=== PATIENT | male | born 1980 | race Caucasian/White ===

== ENCOUNTER 2019-12-10 08:44 | Emergency (ER) | payer OTHER, SELFPAY ==
--- NOTE | ~2019-12-10 | XR_ITS ---
EXAMINATION: XR chest 2V DATE: 12/10/2019 09:30 INDICATION: Cough. Decreased lung zones in right lower lobe. TECHNIQUE: Frontal and lateral views of the chest were obtained on 4 radiographs. COMPARISON: None. FINDINGS: The chest demonstrates clear lungs without pneumonia, pleural effusion, or pneumothorax. Th e heart size is normal. There is mild chronic anterior wedging of multiple thoracic vertebral bodies. IMPRESSION: 1. No acute cardiopulmonary disease. Reviewed, dictated and finalized at location A. [employer]
--- NOTE | 2019-12-10 08:53 | ED.GENADULT ---
HPI - General Adult General Chief complaint: Upper Respiratory Infection Stated complaint: Cold/Flu symptoms Time Seen by Provider: 12/10/19 09:14 Source: patient Mode of arrival: ambulatory Limitations: no limitations History of Present Illness HPI narrative: 39-year-old male patient presents to the [facility] with complaints of cold symptoms for the past 4 days. Patient states he has had lethargy, chills, body aches. Denies any fevers that he is aware of but states he just has been feeling overall cold. Patient complaining of cough and coughing up some yellow-green sputum at times. Patient states he is an active smoker. Patient states he does have shortness of breath at times but not complain of any shortness of breath at this time. Patient states he did not get a flu shot this year. Related Data Allergies Allergy/AdvReac Type Severity Reaction Status Date / Time No Known Allergies Allergy Unknown Verified 12/10/19 09:07 Review of Systems Review of Systems: Narrative: CONSTITUTIONAL: Denies fever, positive body aches, chills, and sweats. EYES: Denies visual changes, redness, or discharge. ENT: Positive rhinorrhea, congestion, denies sore throat, or otalgia. CARDIOVASCULAR: Denies chest pain, palpitations, or edema. RESPIRATORY: Positive cough with dyspnea. GASTROINTESTINAL: Denies abdominal pain, nausea, vomiting, or diarrhea. GENITOURINARY: Denies dysuria or hematuria. SKIN: Denies rash or itching. MUSCULOSKELETAL: Denies back pain, joint pain, or myalgia. NEUROLOGIC: Positive headache, denies numbness, or weakness. PSYCHIATRIC: Denies anxiety or depression. PMFSH Comments At the time of my signature I agree with nursing past medical history, surgical, social, and family history. There is no relevant family history pertinent to the presenting complaint. Exam Narrative: Exam Narrative: GENERAL: ill-appearing, well-nourished, and in no acute distress. HEAD: Normocephalic, atraumatic. No tenderness noted to frontal and maxillary sinuses on palpation EYES: PERRLA and EOMI. ENT: Nares with erythema and edema noted bilaterally, no rhinorrhea or epistaxis. Mucous membranes moist. Posterior pharynx with no erythema, tonsillar margin, exudates or lesions present. Bilateral TMs are clear no erythema or foreign bodies in the canal. NECK: Supple. No lymphadenopathy CHEST: Patient does have decreased breath sounds noted to the right lower lobe on auscultation. No respiratory distress. Patient able talk in clear complete sentences. No tripoding noted. HEART: Regular rate and rhythm. No murmur heard. Normal peripheral pulses. ABDOMEN: Soft, nontender, nondistended, normal active bowel sounds. EXTREMITIES: Normal range of motion. No edema. SKIN: Warm, dry, no rash. NEURO: No focal deficits. Alert and oriented x3. Course Reevaluation(s) Reevaluation #1: Reevaluated patient after his DuoNeb was completed. Patient states he feels slightly better but mostly the same. Lung sounds are much improved with clear lung sounds noted to bilateral upper and lower lobes ranging from before. Discussed with patient that his x-ray is negative for pneumonia and his influenza is negative today as well. Discussed with patient this is most likely viral and because the albuterol did improve some of his symptoms and coughing I am to go ahead and send him home with an albuterol inhaler along with an oral steroid to help with any inflammation. Discussed with him hopefully that this will prevent him from getting bronchitis. Discussed with him that I am also can send him home with a daily antihistamine to help with some of the drainage but that this is viral and will take some time to run its course. Discussed with him he can take Tylenol ibuprofen as needed for body aches, chills and fevers. Patient verbalized understanding denies any other questions or concerns at this time. Date: 12/10/19 Time: 10:04 Vital Signs Vital signs: Vital Signs Temperature 36.
[2019-12-10 08:57] VITALS: BP 164/98; PULSE 74; RESP 18; TEMP 36.7; O2SAT 98
[2019-12-10] MEDS: ALBUTEROL SULFATE NEB 2.5 MG/3 ML INH INHALATION (09:31)
[2019-12-10] MEDS: IPRATROPIUM BR 0.02% INH SOLN 0.5 MG/2.5 ML VIAL INHALATION (09:31)
== END 2019-12-10 10:06 | disposition home or self-care (01) ==
PROVIDERS: Emergency Provider Nurse Practitioner Family
DX: J06.9 Acute upper respiratory infection, unspecified (principal)
CPT/HCPCS: 71046; 87804; 94640; 99213; G0463

== ENCOUNTER 2020-07-07 17:16 | Emergency (ER) | payer OTHER, SELFPAY ==
[2020-07-07 17:24] VITALS: BP 153/95; PULSE 105; RESP 24; TEMP 36.9; O2SAT 98
--- NOTE | 2020-07-07 17:26 | ED.URI ---
HPI - URI/Sore Throat General Chief Complaint: Upper Respiratory Infection Stated Complaint: sore throat/exhaustion/cough Time Seen by Provider: 07/07/20 17:26 Source: patient and RN notes reviewed History of Present Illness HPI Narrative: Patient is a 39-year-old male who presents the urgent care with complaints of 3-day history of sore throat, nonproductive cough, congestion and headache. Patient is a smoker and does report of a chronic cough. Denies of any shortness of breath. Denies of fever, nausea, vomiting. Denies of any known exposure to strep or COVID. Patient states he has been using Tylenol and ibuprofen as needed for pain. No other acute complaints. No acute distress noted. Patient aware of the plan of care. Some parts of this dictation were generated by voice recognition software and may contain typographical and/or grammatical inaccuracies. Related Data Home Medications Medication Instructions Recorded Confirmed No Home Medications 07/07/20 07/07/20 Allergies Allergy/AdvReac Type Severity Reaction Status Date / Time No Known Allergies Allergy Unknown Verified 07/07/20 17:33 Review of Systems Review of Systems: Narrative: CONSTITUTIONAL: Denies fever, chills, or sweats. EYES: Denies visual changes, redness, or discharge. ENT: Reports of sore throat and sinus congestion CARDIOVASCULAR: Denies chest pain, palpitations, or edema. RESPIRATORY: Reports of cough without dyspnea GASTROINTESTINAL: Denies abdominal pain, nausea, vomiting, or diarrhea. GENITOURINARY: Denies dysuria or hematuria. SKIN: Denies rash or itching. MUSCULOSKELETAL: Denies back pain, joint pain, or myalgia. NEUROLOGIC: Reports of headache and fatigue All other systems reviewed are negative, except as documented in HPI. PMFSH Comments At the time of my signature, I reviewed and agree with the nursing past medical, surgical, social, and family history. There is no relevant family history pertinent to the patient complaint. Exam Narrative: Exam Narrative: GENERAL: This is a well-nourished, well-developed patient, appears slightly fatigued; morbidly obese HEAD: normocephalic, atraumatic. EYES: PERRL. Sclera clear/white. Vision is grossly intact. EARS: External ears normal, auditory canals clear and without drainage, TMs normal without perforation. Hearing grossly intact. NOSE: External nose normal with no obvious nasal discharge, nares without redness, no rhinorrhea. THROAT: Mucous membranes moist, posterior pharynx clear. Mild postnasal drainage NECK: Neck supple, non-tender without lymphadenopathy, masses or thyromegaly. CARDIOVASCULAR: Regular rate and rhythm without murmurs, gallops, or rubs. RESPIRATORY: Clear to auscultation. Breath sounds equal bilaterally. No wheezes, rales, or rhonchi. GASTROINTESTINAL: Abdomen soft, non-tender, nondistended. Bowel sounds are active. No hepato-splenomegaly, or palpable masses. No guarding. SKIN: Mildly flushed. Warm, intact with no suspicious lesions or rash, good texture and turgor. NEURO: awake, alert, and oriented to person, place and time. There were no obvious focal neurologic abnormalities. EXTREMITIES: No clubbing, cyanosis, or edema. Course Vital Signs Vital signs: Vital Signs Temperature 98.4 F 07/07/20 17:24 Pulse Rate 105 H 07/07/20 17:24 Respiratory Rate 24 H 07/07/20 17:24 Blood Pressure 153/95 H 07/07/20 17:24 Pulse Oximetry 98 07/07/20 17:24 Temperature 98.4 F 07/07/20 17:24 Pulse Rate 105 H 07/07/20 17:24 Respiratory Rate 24 H 07/07/20 17:24 Blood Pressure 153/95 H 07/07/20 17:24 Pulse Oximetry 98 07/07/20 17:24 Reviewed-patient is informed that they may have pre-hypertension or hypertension based on a blood pressure reading in the department. I recommend the patient call the primary care provider listed on their discharge instructions or a physician of their choice this week to arrange follow-up for further evaluation of possible pre-hyperten
== END 2020-07-07 17:55 | disposition home or self-care (01) ==
PROVIDERS: Emergency Provider Nurse Practitioner Family
DX: J06.9 Acute upper respiratory infection, unspecified (principal)
CPT/HCPCS: 87081; 87804; 87880; 99213; G0463

== ENCOUNTER 2020-07-26 12:03 | Emergency (ER) | payer OTHER, SELFPAY ==
[2020-07-26 12:08] VITALS: BP 130/84; PULSE 73; RESP 20; TEMP 36.8; O2SAT 98
--- NOTE | 2020-07-26 12:55 | ED.GENADULT ---
HPI - General Adult General Chief complaint: Extremity Injury, Lower Stated complaint: right foot and calf swollen Time Seen by Provider: 07/26/20 12:40 Source: patient and RN notes reviewed Mode of arrival: ambulatory Limitations: no limitations History of Present Illness HPI narrative: 39 year old male who presents to [facility] care with complaints of swelling to his right calf region and foot which started yesterday with no known injury to his right foot or lower leg. Patient has pitting edema noted to his right lower leg and foot with foot having mild redness and warmth, pulses decreased to foot with Doppler used to obtain pedal pulse.Patient does have negative Homans sign with measurement of calf 24 inches in comparison to left calf of 22 inches. Patient states that pain is increased with movement of lower right extremity and with any weight bearing. No open wounds noted to right lower leg, patient states he did have pustule to area below his right knee a couple of weeks ago with healed scab noted below his knee. MD complaint: swelling to right calf and foot Onset (ago): day(s) (1) Location: right and lower extremity Radiation: non-radiation Severity: mild Severity scale (1-10): 4 Quality: aching Pain Consistency: constant Relieving factors: rest Exacerbating factors: movement and other (ambulation) Associated symptoms: denies other symptoms Treatments prior to arrival: other (elevation of right lower leg) Related Data Home Medications Medication Instructions Recorded Confirmed No Home Medications 07/07/20 07/26/20 Allergies Allergy/AdvReac Type Severity Reaction Status Date / Time No Known Allergies Allergy Unknown Verified 07/26/20 12:36 Review of Systems Review of Systems: Narrative: CONSTITUTIONAL: Denies fever, chills, or sweats. EYES: Denies visual changes, redness, or discharge. ENT: Denies rhinorrhea, congestion, sore throat, or otalgia. CARDIOVASCULAR: Denies chest pain, palpitations, or edema. RESPIRATORY: Denies cough or dyspnea. GASTROINTESTINAL: Denies abdominal pain, nausea, vomiting, or diarrhea. GENITOURINARY: Denies dysuria or hematuria. SKIN: Denies rash or itching. MUSCULOSKELETAL: Denies back pain, joint pain, or myalgia. NEUROLOGIC: Denies headache, numbness, or weakness. PSYCHIATRIC: Denies anxiety or depression. All systems reviewed & are unremarkable except as noted in HPI and below PMFSH Past Medical History Medical History (Updated 07/28/20 @ 08:48 by Vicki Linda NP) History of IBS Hypertension Open ankle fracture ORIF left ankle with pinning Family History Family History (Updated 07/26/20 @ 13:21 by Vicki Linda NP) Father Heart disease Social History Social History (Updated 07/28/20 @ 08:49 by Vicki Linda NP) Smoking packs per day: 1 Smoking cigarettes per day: 20.0 Years smoked: 20 Smoking pack-years: 20.00 Smoking status: Current every day smoker Tobacco type: cigarettes Living arrangements: with family Gender identity (if verbalized by the patient): Male Comments At time of signature, agree with nursing past medical, surgical, social and family history. There is no relevant family history pertinent to the presenting complaint Exam Narrative: Exam Narrative: GENERAL: Well-appearing, well-nourished,obese and in mild acute distress. HEAD: Normocephalic, atraumatic. EYES: PERRLA and EOMI. ENT: Nares clear, no rhinorrhea or epistaxis. Mucous membranes moist. NECK: Supple.no lymphadenopathy CHEST: Clear to auscultation. No respiratory distress.SAO2 98% on room air HEART: Regular rate and rhythm. No murmur heard. Normal peripheral pulses. ABDOMEN: Soft, nontender, nondistended, normal active bowel sounds. EXTREMITIES: Normal range of motion. No edema. with exception to right lower leg and foot which has pitting edema, lower leg red and warm with right calf 24 inches in diameter compared to left at 22 inches, pedal pulse right foot decreas
== END 2020-07-26 13:15 | disposition short-term general hospital (02) ==
PROVIDERS: Emergency Provider Registered Nurse
DX: M79.89 Other specified soft tissue disorders (principal); F17.210 Nicotine dependence, cigarettes, uncomplicated; I10 Essential (primary) hypertension
CPT/HCPCS: 99211; 99212; G0463

== ENCOUNTER 2021-01-17 09:44 | Emergency (ER) | payer OTHER, MEDICAID, SELFPAY ==
--- NOTE | ~2021-01-17 | XR_ITS ---
EXAMINATION: XR chest 2V DATE: 01/17/2021 10:32 INDICATION: Cough. TECHNIQUE: Frontal and lateral views of the chest were obtained on 4 radiographs. COMPARISON: Chest 2 views 12/10/2019 FINDINGS: Sensitivity is decreased by obesity. The chest demonstrates clear lungs without pneumonia, pleural effusion, or pneumothorax. The heart size is normal. There is mild chronic anterior wedging o f multiple thoracic vertebral bodies. IMPRESSION: 1. No acute cardiopulmonary disease. Reviewed, dictated and finalized at location A.
[2021-01-17 10:00] VITALS: BP 151/97; PULSE 79; RESP 20; TEMP 36.3; O2SAT 96
--- NOTE | 2021-01-17 10:48 | ED.URI ---
HPI - URI/Sore Throat General Chief Complaint: Upper Respiratory Infection Stated Complaint: Sore Throat/Cough/Drainage Source: patient Mode of arrival: ambulatory Limitations: no limitations History of Present Illness HPI Narrative: Patient is a 40-year-old male who presents complaining of cough, congestion, sore throat, runny nose and intermittent body aches and chills x2 days. He denies known exposure to Covid. He is not vaccinated at this time. He denies chest pain or shortness of breath at this time, he denies fever. Patient has not taking any [id number] medications for symptom relief at this time. Patient has no significant medical history, however, he does smoke cigarettes daily. MD elicited complaint: sore throat and nasal congestion Related Data Allergies Allergy/AdvReac Type Severity Reaction Status Date / Time No Known Allergies Allergy Unknown Verified 01/17/21 10:06 Review of Systems Review of Systems: Narrative: CONSTITUTIONAL: Denies fever, reports intermittent chills and body aches. EYES: Denies visual changes, redness, or discharge. ENT: Reports rhinorrhea, congestion and sore throat CARDIOVASCULAR: Denies chest pain, palpitations, or edema. RESPIRATORY: Denies cough or dyspnea. GASTROINTESTINAL: Denies abdominal pain, nausea, vomiting, or diarrhea. GENITOURINARY: Denies dysuria or hematuria. SKIN: Denies rash or itching. MUSCULOSKELETAL: Denies back pain, joint pain, or myalgia. NEUROLOGIC: Denies headache, numbness, dizziness, or weakness. PSYCHIATRIC: Denies anxiety or depression. [facility] Past Medical History Medical History History of IBS Hypertension Open ankle fracture ORIF left ankle with pinning Family History Family History Father Heart disease Social History Social History Smoking packs per day: 1 Smoking cigarettes per day: 20.0 Years smoked: 20 Smoking pack-years: 20.00 Smoking status: Current every day smoker Tobacco type: cigarettes Gender identity (if verbalized by the patient): Male Comments At the time of signature, I have reviewed and agree with nursing past medical, surgical, social, and family history unless otherwise noted. Please see nursing chart for further information. There is no relevant family history pertinent to the presenting complaint. Exam Narrative: Exam Narrative: GENERAL: Well-appearing, well-nourished, and in no acute distress. HEAD: Normocephalic, atraumatic. EYES: EOMI. No redness or drainage. Conjunctiva are normal. ENT: Mucous membranes pink and moist. Nares clear. Positive rhinorrhea. Throat with mild erythema, no exudate. Uvula midline. NECK: AROM. Supple. No lymphadenopathy. CHEST: No respiratory distress. Right-sided expiratory wheezing noted. HEART: Regular rate and rhythm. No murmur appreciated. Normal peripheral pulses. EXTREMITIES: Normal range of motion. No edema. SKIN: Warm, dry, no rash. NEURO: No focal deficits. Alert and oriented x3. Gait steady. PSYCH: Normal affect. No signs of depression or anxiety. Course Vital Signs Vital signs: Vital Signs Temperature 36.3 C L 01/17/21 10:00 Pulse Rate 79 01/17/21 10:00 Respiratory Rate 20 01/17/21 10:00 Blood Pressure 151/97 H 01/17/21 10:00 Pulse Oximetry 96 01/17/21 10:00 Temperature 36.3 C L 01/17/21 10:00 Pulse Rate 79 01/17/21 10:00 Respiratory Rate 20 01/17/21 10:00 Blood Pressure 151/97 H 01/17/21 10:00 Pulse Oximetry 96 01/17/21 10:00 Reviewed MDM - URI/Sore Throat MDM Narrative Medical decision making narrative: Patient's rapid strep and rapid Covid are negative at this time. Covid PCR sent. Chest x-ray is negative, wheezing noted. Patient most likely has bronchitis. Discussed plan of care. Patient agrees with plan of care. Patient is stable for discharg
[2021-01-18 15:48] LABS: SARS-CoV-2 RNA PCR Negative
== END 2021-01-17 10:48 | disposition home or self-care (01) ==
PROVIDERS: Emergency Provider Nurse Practitioner
DX: J40 Bronchitis, not specified as acute or chronic (principal); J06.9 Acute upper respiratory infection, unspecified; Z20.822 Contact with and (suspected) exposure to COVID-19; F17.210 Nicotine dependence, cigarettes, uncomplicated; I10 Essential (primary) hypertension
CPT/HCPCS: 71046; 87081; 87426; 87880; 99213; C9803; G0463; U0003; U0005

== ENCOUNTER 2021-02-25 08:25 | Emergency (ER) | payer SELFPAY ==
--- NOTE | ~2021-02-25 | XR_ITS ---
EXAMINATION: XR chest 1V portable DATE: 02/25/2021 09:02 INDICATION: Shortness of breath. Midline chest pain. TECHNIQUE: A single frontal view of the chest was obtained. COMPARISON: Chest 2 views 01/17/2021 FINDINGS: The chest demonstrates clear lungs without pneumonia, pleural effusion, or pneumothorax. Th e heart size is normal. IMPRESSION: 1. No acute cardiopulmonary disease. Reviewed, dictated and finalized at location A.
[2021-02-25 08:37] VITALS: BP 176/100; PULSE 86; RESP 18; TEMP 35.7; O2SAT 100
--- NOTE | 2021-02-25 08:46 | ECG_ITS ---
Measurements Intervals [place] Rate: 83 P: 14 [place]: 187 QRS: -30 QRSD: 105 T: 20 QT: 382 QTc: 451 Interpretive Statements SINUS RHYTHM LEFT AXIS DEVIATION INCOMPLETE RIGHT BUNDLE BRANCH BLOCK BORDERLINE R WAVE PROGRESSION, ANTERIOR LEADS CONSIDER INFERIOR INFARCT, AGE INDETERMINATE ABNORMAL ECG Electronically Signed On 02-25-2021 11:58:05 CDT by Jose Castro D.O.
[2021-02-25 08:54] VITALS: PULSE 83
[2021-02-25 08:54] LABS: Basophils Absolute Auto 0.2 K/mm3 (0.0-0.1); Basophils Percent Auto 1.6 % (0.2-1.2); Eosinophils Absolute Auto 0.1 K/mm3 (0-0.3); Eosinophils Percent Auto 1.2 % (0-4.4); Hematocrit 42.4 % (42.0-52.0); Hemoglobin 14.2 g/dL (14.0-18.0); Immature Granulocyte Absolute 0.05 K/mm3 (0.00-0.031); Immature Granulocyte Percent A 0.5 % (0-0.5); Lymphocytes Absolute Auto 6.32 K/mm3 (0.9-3.2); Lymphocytes Percent Auto 62.6 % (18.3-44.2); Mean Corpuscular HGB Conc 33.5 g/dl (32-36); Mean Corpuscular Hemoglobin 31.6 pg (26-34); Mean Corpuscular Volume 94.4 fl (80-100); Mean Platelet Volume 9.3 fl (7.4-10.4); Monocytes Absolute Auto 0.6 K/mm3 (0.1-0.6); Monocytes Percent Auto 5.7 % (2.6-8.5); Neutrophils Absolute Auto 2.9 K/mm3 (1.3-6.7); Neutrophils Percent Auto 28.4 % (45.5-73.1); Platelet Count Result 188 k/mm3 (150-375); Red Blood Count 4.49 M/mm3 (4.6-6.20); Red Cell Distribution Width 13.9 % (11.5-14.5); White Blood Count 10.1 K/mm3 (4.5-10.0)
[2021-02-25] MEDS: METOPROLOL TARTRATE INJ 5 MG/5 ML VIAL IV PUSH (08:54)
[2021-02-25 09:24] LABS: Prothrombin Time 13.5 Seconds (11.1-14.7)
[2021-02-25 09:27] LABS: Alanine Aminotransferase 45 U/L (4-50); Alkaline Phosphatase 78 U/L (38-126); Anion Gap 7 mmol/L (8-16); Aspartate Amino Transferase 60 U/L (17-59); Bilirubin,Total 0.3 mg/dL (0.2-1.3); Blood Urea Nitrogen 15 mg/dL (9-20); Carbon Dioxide 25 mmol/L (22-30); Chloride 105 mmol/L (98-107); D Dimer 0.37 ug/mL (<0.48); Estimated CRCL calculation 197 ml/min; Estimated Glomerular Filt Rate > 60; Glucose 111 mg/dL (75-110); Potassium 4.1 mmol/L (3.4-5.0); Sodium 137 mmol/L (137-145)
[2021-02-25 09:38] LABS: Troponin I < 0.012 ng/mL (0.000-0.034)
[2021-02-25 10:21] VITALS: BP 147/101; PULSE 97; RESP 14; O2SAT 97
[2021-02-25 12:07] LABS: Troponin I < 0.012 ng/mL (0.000-0.034)
[2021-02-25 12:28] VITALS: BP 141/99; PULSE 78; RESP 18; O2SAT 99
--- NOTE | 2021-02-25 12:58 | ED.CHESTPAIN ---
HPI - Chest Pain General Chief Complaint: Chest Pain Stated Complaint: Chest pain/SOB Time Seen by Provider: 02/25/21 08:42 Source: patient Mode of arrival: ambulatory Limitations: no limitations History of Present Illness HPI narrative: 40-year-old with history of hypertension here with complaints of chest pain however past 1 day. He states the pain is in the midsternal area nonradiating also complains of shortness of breath. He denies any nausea, vomiting or fever or chills. Denies cough. No previous history of coronary artery disease. MD complaint: chest pain Onset (ago): day(s) (1) Timing of current episode: constant Pain location: substernal Pain radiation: none Severity: mild Quality: tightness Relieving factors: nothing Exacerbating factors: nothing Treatment prior to arrival: none Risk Factors Coronary artery disease risk factors: hypertension Related Data Allergies Allergy/AdvReac Type Severity Reaction Status Date / Time No Known Allergies Allergy Unknown Verified 02/25/21 08:44 Review of Systems Review of Systems: All systems reviewed & are unremarkable except as noted in HPI and below Constitutional: Constitutional: Reports no additional constitutional complaints ENT: Reports system reviewed and no additional complaints, except as documented Cardiovascular: Cardiovascular: Reports as per HPI Respiratory: Respiratory: Reports no additional respiratory complaints Musculoskeletal: Musculoskeletal: Reports no additional musculoskeletal complaints Integumentary/Breasts: Skin/Breast: Reports system reviewed and no additional complaints, except as docu Neurologic: Reports system reviewed and no additional complaints, except as documented Psychiatric: Psychiatric: Reports no additional psychiatric complaints PMFSH Past Medical History Medical History History of IBS Hypertension Open ankle fracture ORIF left ankle with pinning Family History Family History Father Heart disease Social History Social History Smoking packs per day: 1 Smoking cigarettes per day: 20.0 Years smoked: 20 Smoking pack-years: 20.00 Smoking status: Current every day smoker Tobacco type: cigarettes Gender identity (if verbalized by the patient): Male Exam Narrative: Exam Narrative: GENERAL: Well-appearing morbidly obese, and in no acute distress. HEAD: Normocephalic, atraumatic. EYES: PERRLA and EOMI. ENT: Nares clear, no rhinorrhea or epistaxis. Mucous membranes moist. NECK: Supple. CHEST: Clear to auscultation. No respiratory distress. HEART: Regular rate and rhythm. No murmur heard. Normal peripheral pulses. ABDOMEN: Soft, nontender, nondistended, normal active bowel sounds. EXTREMITIES: Normal range of motion. No edema. SKIN: Warm, dry, no rash. NEURO: No focal deficits. Alert and oriented x3. PSYCH: Normal mood and affect. Course Course Emergency Course: Patient remained asymptomatic here at this time. I did discuss labs EKG chest x-ray findings with the patient we will start him on lisinopril for his blood pressure. Advised him to follow-up with the on-call doctor. He does feel comfortable going home. Vital Signs Vital signs: Vital Signs Temperature 35.7 C L 02/25/21 08:37 Pulse Rate 86 02/25/21 08:37 Respiratory Rate 18 02/25/21 08:37 Blood Pressure 176/100 H 02/25/21 08:37 Pulse Oximetry 100 02/25/21 08:37 Temperature 35.7 C L 02/25/21 08:37 Pulse Rate 78 02/25/21 12:28 Respiratory Rate 18 02/25/21 12:28 Blood Pressure 141/99 H 02/25/21 12:28 Pulse Oximetry 99 02/25/21 12:28 MDM - Chest Pain Differential Diagnosis Differential diagnosis: Likely unstable angina pectoris, atypical chest pain and chest pain Lab Data Result diagrams: 02/25/21 08:48 02/25/21 09:06
[2021-02-25 13:18] VITALS: BP 133/75; PULSE 72; RESP 18; O2SAT 99
== END 2021-02-25 13:18 | disposition home or self-care (01) ==
PROVIDERS: Emergency Provider Family Medicine
DX: R07.2 Precordial pain (principal); I10 Essential (primary) hypertension; K58.9 Irritable bowel syndrome, unspecified; F17.218 Nicotine dependence, cigarettes, with other nicotine-induced disorders; I45.10 Unspecified right bundle-branch block; R94.31 Abnormal electrocardiogram [ECG] [EKG]
CPT/HCPCS: 36415; 71045; 80053; 84484; 85025; 85380; 85610; 93005; 96374; 99284

== ENCOUNTER 2021-07-12 10:12 | Emergency (ER) | payer OTHER, MEDICAID, SELFPAY ==
--- NOTE | 2021-07-12 10:21 | PC.NURSE ---
pt walked out. does not want to be seen. unhappy about visitor policy. pt also had young child with him.
== END 2021-07-12 10:21 | disposition left against medical advice (07) ==
DX: Z53.21 Procedure and treatment not carried out due to patient leaving prior to being seen by health care provider (principal)
CPT/HCPCS: 99199

== ENCOUNTER 2021-11-28 09:59 | Emergency (ER) | payer SELFPAY ==
[2021-11-28 10:06] VITALS: BP 175/108; PULSE 67; RESP 18; TEMP 36.6; O2SAT 98
--- NOTE | 2021-11-28 10:10 | ED.URI ---
HPI - URI/Sore Throat General Chief Complaint: Ear Stated Complaint: Congestion/Ear Pain Source: patient and RN notes reviewed Mode of arrival: ambulatory Limitations: no limitations History of Present Illness MD elicited complaint: cough and sore throat Related Data Allergies Allergy/AdvReac Type Severity Reaction Status Date / Time No Known Allergies Allergy Unknown Verified 02/25/21 08:44 Review of Systems Review of Systems: CONSTITUTIONAL: Denies malaise, chills, sweats, or fever. EYES: Denies visual changes, redness, or discharge. ENT: Reports rhinorrhea, congestion, sinus pain, otalgia and sore throat. CARDIOVASCULAR: Denies chest pain, palpitations, or edema. RESPIRATORY: Reports cough. Denies dyspnea. GASTROINTESTINAL: Denies abdominal pain, nausea, vomiting, diarrhea SKIN: Denies rash or itching. MUSCULOSKELETAL: Denies myalgia. NEUROLOGIC: Denies headache. All systems reviewed & are unremarkable except as noted in HPI and below PMFSH Past Medical History Medical History History of IBS Hypertension Open ankle fracture ORIF left ankle with pinning Family History Family History Father Heart disease Social History Social History Smoking packs per day: 1 Smoking cigarettes per day: 20.0 Years smoked: 20 Smoking pack-years: 20.00 Smoking status: Current every day smoker Tobacco type: cigarettes Gender identity (if verbalized by the patient): Male Comments At time of signature, agree with nursing past medical, surgical, social and family history. There is no relevant family history pertinent to the presenting complaint Exam Narrative: GENERAL: Well-appearing, well-nourished, and in no acute distress. HEAD: Normocephalic EYES: PERRLA, conjunctivae clear ENT: Nares clear, turbinates edematous and erythematous, clear discharge. Mucous membranes moist. TM pearly carroll with dull light reflex bilaterally; no tragal tenderness. Oropharynx not erythematous without lesions. Tonsils not enlarged and without exudate, no drooling, no hoarseness, no trismus, uvula midline. NECK: Supple. No lymphadenopathy CHEST: Clear to auscultation, breath sounds equal. No wheezing, rhonchi, rales, or stridor. No respiratory distress, speaks in full sentences. HEART: Regular rate and rhythm. No murmur heard. SKIN: Warm, dry, no rash. NEURO: Alert and oriented x3. PSYCH: Normal mood and affect Course Course Emergency Course: Patient is aware of diagnosis, understands and agrees to treatment plan. Anticipatory guidance given. Patient agrees to follow-up as directed and is aware of reasons to seek care at the emergency department. Portions of this record may have been created with voice recognition software Level of Care: Express Care Visit Vital Signs Vital signs: Reviewed. MDM - URI/Sore Throat MDM Narrative Medical decision making narrative: Differential diagnosis considered: Silva virus, strep pharyngitis, allergic rhinitis, upper respiratory tract infection, sinusitis, rhinosinusitis, nasopharyngitis. viral pharyngitis, otitis media, otitis externa, pneumonia, bronchitis, viral cough syndrome, viral syndrome, and influenza. Exam findings show no acute concerns or changes; patient is non-toxic appearing and is in no distress. Patient is appropriate for outpatient treatment and follow-up. Lab Data Attestation: I reviewed the patient's lab results. Critical Care Time Critical Care Time Critical Care Time: No Discharge Plan Discharge Prescriptions: No Action prednisone 20 mg tablet 40 mg PO DAILY 5 Days Qty: 10 RF: 0 albuterol sulfate [ProAir HFA] 90 mcg/actuation HFA aerosol inhaler 2 puff inhalation QID PRN (Reason: shortness of breath or wheezing) Qty: 8.5 RF: 0 lisinopril-hydrochlorothiazide 20-12.5 mg tablet 1 tablet PO DAILY Q
--- NOTE | 2021-11-28 10:51 | ED.EAR ---
HPI - Ear Problem General Chief complaint: Ear Stated complaint: Congestion/Ear Pain Time Seen by Provider: 11/28/21 10:50 Source: patient and RN notes reviewed Mode of arrival: ambulatory Limitations: no limitations History of Present Illness HPI Narrative: 41-year-old male presents with concern for ear pain, worse on the left, feeling of fluid in his ears, decreased hearing on the left. He reports he has had nasal congestion for several days. He denies fever, body aches, chills, sweats. Reports he took Benadryl which helped nasal congestion but did not help with his ears. He reports drainage from the left ear Complaint: ear pain Related Data Allergies Allergy/AdvReac Type Severity Reaction Status Date / Time No Known Allergies Allergy Unknown Verified 11/28/21 10:14 Review of Systems Review of Systems: CONSTITUTIONAL: Denies malaise, chills, sweats, or fever. EYES: Denies visual changes, redness, or discharge. ENT: Reports rhinorrhea, congestion. Denies sinus pain, and sore throat. Reports bilateral ear pain, decreased hearing, feeling of fluid in the left ear, drainage from left ear CARDIOVASCULAR: Denies chest pain, palpitations, or edema. RESPIRATORY: Denies cough. Denies dyspnea. GASTROINTESTINAL: Denies abdominal pain, nausea, vomiting, diarrhea SKIN: Denies rash or itching. MUSCULOSKELETAL: Denies myalgia. NEUROLOGIC: Denies headache. All systems reviewed & are unremarkable except as noted in HPI and below PMFSH Past Medical History Medical History History of IBS Hypertension Open ankle fracture ORIF left ankle with pinning Family History Family History Father Heart disease Social History Social History Smoking packs per day: 1 Smoking cigarettes per day: 20.0 Years smoked: 20 Smoking pack-years: 20.00 Smoking status: Current every day smoker Tobacco type: cigarettes Gender identity (if verbalized by the patient): Male Comments At time of signature, agree with nursing past medical, surgical, social and family history. There is no relevant family history pertinent to the presenting complaint Exam Narrative: GENERAL: Well-appearing, well-nourished, and in no acute distress. HEAD: Normocephalic EYES: PERRLA, conjunctivae clear ENT: Mucous membranes moist. Right TM pearly carroll with dull light reflex, left TM ruptured; left tragal tenderness with auditory canal erythema and edema. NECK: Supple. No lymphadenopathy CHEST: No respiratory distress, speaks in full sentences. HEART: Regular rate and rhythm. SKIN: Warm, dry, no rash. NEURO: Alert and oriented x3. PSYCH: Normal mood and affect Course Course Emergency Course: Patient is aware of diagnosis, understands and agrees to treatment plan. Anticipatory guidance given. Patient agrees to follow-up as directed and is aware of reasons to seek care at the emergency department. Portions of this record may have been created with voice recognition software Level of Care: Express Care Visit Vital Signs Vital signs: Vital Signs Temperature 97.8 F 11/28/21 10:06 Pulse Rate 67 11/28/21 10:06 Respiratory Rate 18 11/28/21 10:06 Blood Pressure 175/108 H 11/28/21 10:06 Pulse Oximetry 98 11/28/21 10:06 Temperature 97.8 F 11/28/21 10:06 Pulse Rate 67 11/28/21 10:06 Respiratory Rate 18 11/28/21 10:06 Blood Pressure 175/108 H 11/28/21 10:06 Pulse Oximetry 98 11/28/21 10:06 Reviewed. Medical Decision Making MDM Narrative Medical decision making narrative: Differential diagnosis considered: Silva virus, strep pharyngitis, allergic rhinitis, upper respiratory tract infection, sinusitis, rhinosinusitis, nasopharyngitis. viral pharyngitis, otitis media, otitis externa, otitis effusion, cerumen impaction, foreign body. Exam findings show no acute concer
== END 2021-11-28 11:00 | disposition home or self-care (01) ==
PROVIDERS: Emergency Provider Nurse Practitioner
DX: H60.502 Unspecified acute noninfective otitis externa, left ear (principal); H66.002 Acute suppurative otitis media without spontaneous rupture of ear drum, left ear; F17.210 Nicotine dependence, cigarettes, uncomplicated; I10 Essential (primary) hypertension
CPT/HCPCS: 99213; G0463

== ENCOUNTER 2023-01-30 14:48 | Emergency (ER) | payer OTHER, MEDICAID, SELFPAY ==
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
[2023-01-30 14:57] VITALS: BP 175/92; PULSE 88; RESP 18; TEMP 36.6; O2SAT 99
== END 2023-01-30 15:19 | disposition home or self-care (01) ==
PROVIDERS: Emergency Provider Nurse Practitioner Family
DX: T24.202A Burn of second degree of unspecified site of left lower limb, except ankle and foot, initial encounter (principal); T24.201A Burn of second degree of unspecified site of right lower limb, except ankle and foot, initial encounter; X19.XXXA Contact with other heat and hot substances, initial encounter; I10 Essential (primary) hypertension; F17.210 Nicotine dependence, cigarettes, uncomplicated
CPT/HCPCS: 99213; G0463

== ENCOUNTER 2024-02-15 17:34 | Emergency (ER) | payer OTHER, SELFPAY ==
[2024-02-15 17:39] VITALS: BP 180/89; PULSE 92; RESP 16; TEMP 37.2; O2SAT 96
--- NOTE | 2024-02-15 18:36 | ED.WOUNDLAC ---
HPI - Wound/Laceration General Chief Complaint: Wound/Laceration Stated Complaint: Left leg wound Time Seen by Provider: 02/15/24 18:20 Source: patient, RN notes reviewed and old records reviewed Mode of arrival: ambulatory Limitations: no limitations History of Present Illness HPI narrative: 43 [facility] family member with complaints of wound to left lower leg which he noted about a week ago.Patient reports that he noted a scab to area and today he accidently knocked it off area. Patient reports that he has noted increase redness around wound and swelling of tissue no drainage noted or any known fevers or chills. Patient has 1 cm concave wound to left ower anterior leg with surrounding redness 2cm X 3cm. Onset (ago): week(s) (1) Extremity Location: Left: lower leg (anterior aspect) Related Data Allergies Allergy/AdvReac Type Severity Reaction Status Date / Time No Known Allergies Allergy Unknown Verified 01/30/23 15:01 Review of Systems Review of Systems: CONSTITUTIONAL: Denies fever, chills, or sweats. CARDIOVASCULAR: Denies chest pain, palpitations, or edema. RESPIRATORY: Denies cough or dyspnea. GASTROINTESTINAL: Denies abdominal pain, nausea, vomiting SKIN: Reports redness and swelling to left lower leg with 1cm concave open wound anterior aspect of left lower leg reports has seen some yellow clear drainage from wound..denies pain beyond proportion MUSCULOSKELETAL: Denies myalgia. NEUROLOGIC: Denies headache, numbness All systems reviewed & are unremarkable except as noted in HPI and below PMFSH Past Medical History Medical History (Updated 02/17/24 @ 18:01 by Vicki Linda NP) Depression History of IBS Hypertension Open ankle fracture ORIF left ankle with pinning Family History Family History Father Heart disease Social History Social History Smoking packs per day: 1 Smoking cigarettes per day: 20.0 Years smoked: 20 Smoking pack-years: 20.00 Smoking status: Current every day smoker Tobacco type: cigarettes Living arrangements: with family Gender identity (if verbalized by the patient): Male Comments At time of signature, agree with nursing past medical, surgical, social and family history. There is no relevant family history pertinent to the presenting complaint Exam Narrative: GENERAL: Well-appearing, well-nourished,morbidly obese, and in no acute distress. HEAD: Normocephalic, atraumatic. EYES: PERRLA and EOMI. ENT: Nares clear, no rhinorrhea or epistaxis. Mucous membranes moist.TM's normal throat pink with no swelling NECK: Supple. no lymphadenopathy CHEST: Clear to auscultation. No respiratory distress. HEART: Regular rate and rhythm. No murmur heard. Normal peripheral pulses. ABDOMEN: Soft, nontender, nondistended, normal active bowel sounds. EXTREMITIES: Normal range of motion. bilateral pedal edema present SKIN: Warm, dry. Erythema, induration, tenderness, warmth ro open wound of left lower anterior leg which is concave in appearance 1cm diameter, with [id number] area of redness around wound with swelling,reports some yellowish drainage. NEURO: No focal deficits. Alert and oriented x3. Course Course Emergency Course: Patient is aware of diagnosis, understands and agrees to treatment plan. Anticipatory guidance given. Patient agrees to follow-up as directed and is aware of reasons to seek care at the emergency department. Portions of this record may have been created with voice recognition software Level of Care: Express Care Visit Vital Signs Vital signs: Vital Signs Temperature 37.2 C 02/15/24 17:39 Pulse Rate 92 02/15/24 17:39 Respiratory Rate 16 02/15/24 17:39 Blood Pressure 180/89 H 02/15/24 17:39 Pulse Oximetry 96 02/15/24 17:39 Oxygen Delivery Room Air 02/15/24 17:39 Temperature
== END 2024-02-15 19:00 | disposition home or self-care (01) ==
PROVIDERS: Emergency Provider Registered Nurse
DX: S81.802A Unspecified open wound, left lower leg, initial encounter (principal); X58.XXXA Exposure to other specified factors, initial encounter; I10 Essential (primary) hypertension; F17.210 Nicotine dependence, cigarettes, uncomplicated
CPT/HCPCS: 99213; G0463

== ENCOUNTER 2024-04-14 12:42 | Emergency (ER) | payer OTHER, SELFPAY ==
[2024-04-14 12:50] VITALS: BP 160/100; PULSE 96; RESP 22; O2SAT 98
--- NOTE | 2024-04-14 12:54 | ED.GENADULT ---
HPI - General Adult General Chief complaint: Unspecified Stated complaint: Body Aches/Dizziness/Urinary Problem Time Seen by Provider: 04/14/24 12:55 Source: patient, RN notes reviewed and old records reviewed Mode of arrival: ambulatory Limitations: no limitations History of Present Illness HPI narrative: 43-year-old male presents to the [facility] with complaints of being dizzy, generalized weakness, body aches and fatigue. Patient is stating that he feels like he might be dehydrated. Patient thought we can do IV fluids. Discussed with patient that that would be the emergency room. Patient was concern also for lab work. Denies any chest pain. Denies that his heart is racing. Denies abdominal pain. Just states that he gets intermittently dizzy, none on exam Related Data Home Medications Medication Instructions Recorded Confirmed No Home Medications 04/14/24 04/14/24 Allergies Allergy/AdvReac Type Severity Reaction Status Date / Time No Known Allergies Allergy Unknown Verified 04/14/24 13:24 Review of Systems Review of Systems: All systems reviewed & are unremarkable except as noted in HPI and below Constitutional: Constitutional: Reports as per HPI Eyes: Eyes: Reports no additional eye complaints ENT: Reports system reviewed and no additional complaints, except as documented Cardiovascular: Cardiovascular: Reports no additional cardiovascular complaints, Denies chest pain and Denies dyspnea Respiratory: Respiratory: Reports no additional respiratory complaints, Denies chest congestion, Denies cough and Denies dyspnea Gastrointestinal: Gastrointestinal: Reports no additional gastrointestinal complaints, Denies abdominal pain, Denies nausea and Denies vomiting Musculoskeletal: Musculoskeletal: Reports no additional musculoskeletal complaints Integumentary/Breasts: Skin/Breast: Reports system reviewed and no additional complaints, except as docu Neurologic: Reports system reviewed and no additional complaints, except as documented Psychiatric: Psychiatric: Reports no additional psychiatric complaints Allergic/Immunologic: Allergic/Immunologic: Reports no additional allergic/immunologic complaints [facility] Past Medical History Medical History (Updated 04/15/24 @ 00:00 by Eloy Pollack) Depression History of IBS Hypertension Open ankle fracture ORIF left ankle with pinning Family History Family History Father Heart disease Social History Social History Smoking packs per day: 1 Smoking cigarettes per day: 20.0 Years smoked: 20 Smoking pack-years: 20.00 Smoking status: Current every day smoker Tobacco type: cigarettes Living arrangements: with family Gender identity (if verbalized by the patient): Male Comments At the time of my signature, I reviewed and agree with the nursing past medical, surgical, social, and family history. There is no relevant family history pertinent to the patient complaint. Exam Const: General: cooperative, healthy appearing, comfortable, no acute distress, well developed, alert and well nourished Nutritional Appearance: well nourished and obese Orientation/consciousness: patient oriented x3 Limitations: no limitations HENMT: Head: normal to inspection Ears: hearing grossly normal bilaterally and external ears normal Face/Nose/Sinus: Normal external nose present, Normal nares present, Normal nasal mucous membranes and turbinates present, normal facial exam and face symmetric Face and sinus: normal facial exam and face symmetric Mouth: Yes moist mucous membranes Eyes: General: appearance normal, both eyes and all related structures Alignment and Position: alignment normal Periorbital: periorbital findings normal Pupils: Equal, round and reactive pupils present EOM: EOMs intact bilaterally Neck: Neck: normal visual inspection, full ROM,
== END 2024-04-14 13:04 | disposition left against medical advice (07) ==
PROVIDERS: Emergency Provider Nurse Practitioner
DX: R53.83 Other fatigue (principal); R52 Pain, unspecified; I10 Essential (primary) hypertension; F17.210 Nicotine dependence, cigarettes, uncomplicated
CPT/HCPCS: 99211; G0463

== ENCOUNTER 2024-07-01 12:41 | Emergency (ER) | payer OTHER, SELFPAY ==
--- NOTE | ~2024-07-01 | XR_ITS ---
XR chest 2V Ordering provider: MIRELLA Baxter History: 43 years Male with . cough for several days and accelerated htn. smoker . Comparison: February 25, 2021 FINDINGS: MEDIASTINUM: The cardiac silhouette is not enlarged. Hilar calcified lymph nodes. LUNGS: No infiltrates, effusions or pneumothorax. Prominent bronchovascular markings. OTHER: No free air under the diaphragm. Degenerative changes of the spine. IMPRESSION: No acute cardiopulmonary pathology. Reviewed, dictated and finalized at location A.
[2024-07-01 12:51] VITALS: BP 215/106; PULSE 98; RESP 22; TEMP 36.7; O2SAT 97
[2024-07-01 13:34] VITALS: BP 184/101; PULSE 96
[2024-07-01 13:46] LABS: EDCOVIDSCREEN Negative (Negative); EDINFLUASCREEN Negative (Negative); EDINFLUBSCREEN Negative (Negative); EDSTREPNEGPOS1 Negative (Negative)
--- NOTE | 2024-07-01 13:56 | ED.GENADULT ---
HPI - General Adult General Chief complaint: Upper Respiratory Infection Stated complaint: Sore Throat/Fever/Cough Source: patient Mode of arrival: ambulatory Limitations: no limitations History of Present Illness HPI narrative: Patient presents for evaluation of sick symptoms for last few days. Symptoms include productive cough of green/white sputum, generalized body aches, sinus congestion, postnasal drainage and sore throat. No nausea, vomiting or diarrhea. His is currently sick. He smokes 1 ppd. He tried taking DayQuil yesterday which helped somewhat with his nasal drainage. He has a history of HTN and was previously on lisinopril-hctz. He does not have a primary doctor so is currently not on any medication for his BP. He denies CP or SOB. Related Data Allergies Allergy/AdvReac Type Severity Reaction Status Date / Time No Known Allergies Allergy Unknown Verified 04/14/24 13:24 Review of Systems Review of Systems: CONSTITUTIONAL: Denies fever, chills, or sweats. EYES: Denies visual changes, redness, or discharge. ENT: Reports sinus congestion, postnasal drainage and sore throat. CARDIOVASCULAR: Denies chest pain, palpitations, or edema. RESPIRATORY: Reports cough. Denies shortness of breath. GASTROINTESTINAL: Denies abdominal pain, nausea, vomiting, or diarrhea. GENITOURINARY: Denies dysuria or hematuria. SKIN: Denies rash or itching. MUSCULOSKELETAL: Reports generalized body aches. NEUROLOGIC: Denies headache, numbness, dizziness, or weakness. PSYCHIATRIC: Denies anxiety or depression. [facility] Past Medical History Medical History Depression History of IBS Hypertension Open ankle fracture ORIF left ankle with pinning Surgical History Surgical History No pertinent past surgical history Family History Family History Father Heart disease Social History Social History Smoking packs per day: 1 Smoking cigarettes per day: 20.0 Years smoked: 20 Smoking pack-years: 20.00 Smoking status: Current every day smoker Tobacco type: cigarettes Living arrangements: with family Gender identity (if verbalized by the patient): Male Exam Narrative: GENERAL: Morbidly obese. In no acute distress. HEAD: Normocephalic, atraumatic. EYES: PERRLA and EOMI. ENT: Nares clear, no rhinorrhea or epistaxis. Mucous membranes moist. There is posterior pharyngeal erythema without exudate. Uvula is midline. Bilateral TMs pearly carroll nonbulging NECK: Supple. No adenopathy or masses. No carotid bruits or JVD CHEST: Diminished breath sounds throughout. No adventitious lung sounds. Cough present on exam HEART: Regular rate and rhythm. No murmur heard. Normal peripheral pulses. ABDOMEN: Soft, nontender, nondistended, normal active bowel sounds. EXTREMITIES: Normal range of motion. No edema. SKIN: Warm, dry, no rash. NEURO: No focal deficits. Alert and oriented x3. PSYCH: Normal mood and affect. Course Course Emergency Course: This is a 43-year-old male that presented for evaluation of sick symptoms. COVID, influenza, strep were all negative. Chest x-ray negative. Blood pressure improved. Exam is consistent with acute viral syndrome. Will discharge with Tessalon. Advised on smoking cessation. Will discharge with a prescribe ask for his blood pressure. He is asymptomatic in regard to his blood pressure. He was advised to go to the emergency department if he develops chest pain or shortness of breath. Otherwise he should follow up with his primary care provider. Pt in agreement with plan of care. Level of Care: Express Care Visit Vital Signs Vital signs: Vital Signs Temperature 36.7 C 07/01/24 12:51 Pulse Rate 98 07/01/24 12:51 Respiratory Rat
[2024-07-01 13:57] VITALS: BP 182/101
== END 2024-07-01 14:42 | disposition home or self-care (01) ==
PROVIDERS: Emergency Provider Nurse Practitioner
DX: B34.9 Viral infection, unspecified (principal); I10 Essential (primary) hypertension; Z20.822 Contact with and (suspected) exposure to COVID-19; F17.210 Nicotine dependence, cigarettes, uncomplicated
CPT/HCPCS: 71046; 87081; 87426; 87804; 87880; 99213; G0463

== ENCOUNTER 2024-09-18 15:45 | Emergency (ER) | payer OTHER, SELFPAY ==
--- NOTE | ~2024-09-18 | XR_ITS ---
EXAMINATION: XR chest 2V DATE: 09/18/2024 16:49 INDICATION: Cough and chest congestion TECHNIQUE: frontal and lateral views of the chest were obtained. COMPARISON: Chest radiograph dated 07/01/2024 FINDINGS: Subtle airspace opacity lingula better appreciated on the lateral projection which obscures the left heart border. No pulmonary edema, pleural effusion or pneumothorax. Heart size is normal. Mild lower thoracic kyphosis with chronic mild anterior wedging of a couple lower thoracic vertebral bodies and moderate spondylosis. IMPRESSION: 1. Mild opacities at the lingula which could represent pneumonia or atelectasis. Reviewed, dictated and finalized at location A. SLINGER OPERATOR IMPRESSION: 1. Mild opacities at the lingula which could represent pneumonia or atelectasis .
--- NOTE | 2024-09-18 16:14 | ED.URI ---
HPI - URI/Sore Throat General Chief Complaint: Upper Respiratory Infection Stated Complaint: Congestion/Cough/Sore Throat/Shortness of Breath Time Seen by Provider: 09/18/24 16:14 Source: patient, RN notes reviewed and old records reviewed Mode of arrival: ambulatory Limitations: no limitations History of Present Illness HPI Narrative: 44 year old male presents to express care with complaints of cough with congestion, sore throat since Sunday and some shortness of breath noted today. Patient reports that he noted some sweats on Sunday but has not had any known fevers. Patient reports that he has been taking Mucinex for his symptoms. Patient is daily tobacco smoker of 1 ppd for the past 20 years. Patient reports that his boss told him to come in and get checked out today due to his symptoms. MD elicited complaint: cough, sore throat and other (congestion, dyspnea) Pertinent past history: other (tobacco use) Onset (ago): hour(s) (5 days) Consistency: progressively worsening Severity: moderate Description of mucous: yellow Able to tolerate fluids by mouth: Yes Treatments prior to arrival: other (Mucinex) Related Data Allergies Allergy/AdvReac Type Severity Reaction Status Date / Time No Known Allergies Allergy Unknown Verified 09/18/24 17:03 Review of Systems Review of Systems: CONSTITUTIONAL: Reports malaise, chills,positive for sweats,no known fever. EYES: Denies visual changes, redness, or discharge. ENT: Reports rhinorrhea, congestion, sinus pain, no otalgia and positive for sore throat. CARDIOVASCULAR: Denies chest pain, palpitations, or edema. RESPIRATORY: Reports cough.? Reports some dyspnea with exertion. GASTROINTESTINAL: Denies abdominal pain, nausea, vomiting, diarrhea SKIN: Denies rash or itching. MUSCULOSKELETAL: Denies myalgia. NEUROLOGIC: Denies headache. All systems reviewed & are unremarkable except as noted in HPI and below PMFSH Past Medical History Medical History Depression Open ankle fracture ORIF left ankle with pinning History of IBS Hypertension Surgical History Surgical History No pertinent past surgical history Family History Family History Father Heart disease Social History Social History (Updated 09/21/24 @ 10:48 by Vicki Linda NP) Smoking packs per day: 1 Smoking cigarettes per day: 20.0 Years smoked: 20 Smoking pack-years: 20.00 Smoking status: Current every day smoker Tobacco type: cigarettes Alcohol intake: current Alcohol use details: social Substance use: unknown Living arrangements: with family Gender identity (if verbalized by the patient): Male Comments At time of signature, agree with nursing past medical, surgical, social and family history. There is no relevant family history pertinent to the presenting complaint Exam Narrative: GENERAL: Well-appearing, well-nourished, obese,and in no acute distress. HEAD: Normocephalic EYES: PERRLA, conjunctivae clear ENT: Nares clear, turbinates edematous and erythematous, clear discharge. Mucous membranes moist. TM pearly carroll with dull light reflex bilaterally; no tragal tenderness. Oropharynx erythematous without lesions. Tonsils red not enlarged and without exudate, no drooling, no hoarseness, no trismus, uvula midline.post nasal drainage NECK: Supple. No lymphadenopathy CHEST:Scattered rhonchi left upper lobe on auscultation,. No wheezing,positive for rhonchi, rales, or stridor. No respiratory distress, speaks in full sentences.harsh cough noted SAO2 98% on room air HEART: Regular rate and rhythm. No murmur heard. SKIN: Warm, dry, no rash. NEURO: Alert and oriented x3. PSYCH: Normal mood and affect Course Course Emergency Course: Patient is aware of diagnosis, understands and agrees to treatment plan.? Anticipatory guidance given.? Patient agrees to follow-up as directed and is aware of reasons to seek care at the emergency department. Portions of this record may have been created with voice recognition software Level of Care: Express Care Visit Vital Signs Vital signs: Vital Signs Temperature 36.2 C L 09/18/24 16:24 Pulse Rate 80 09/18/24 16:24 Respiratory Rate 15 09/18/24 16:24 Blood Pressure 179/91 H 09/18/24 16:24 Pulse Oximetry 98 09/18/24 16:24 Oxygen Delivery Room Air 09/18/24 16:24 Temperature 36.2 C L 09/18/24 16:24 Pulse Rate 80 09/18/24 16:24 Respiratory Rate 15 09/18/24 16:24 Blood Pressure 179/91 H 09/18/24 16:24 Pulse Oximetry 98 09/18/24 16:24 Oxygen Delivery Room Air 09/18/24 16:24 Reviewed MDM - URI/Sore Throat MDM Narrative Medical decision making narrative: Differential diagnosis considered: Silva virus, strep pharyngitis, allergic rhinitis, upper respiratory tract infection, sinusitis, rhinosinusitis, nasopharyngitis. viral pharyngitis, otitis media, otitis externa, pneumonia, bronchitis, viral cough syndrome, viral syndrome, and influenza.? Exam findings show no acute concerns or changes; patient is non-toxic appearing and is in no distress.? Patient is appropriate for outpatient treatment and follow-up. Differential Diagnosis Differential diagnosis: Likely upper respiratory infection, viral infection, bronchitis, pharyngitis and other (strep pharyngitis, pneumonia) Medical Records Attestation: I reviewed the patient's medical records. Lab Data Attestation: I reviewed the patient's lab results. Lab results narrative: strep negative, culture sent,influenza A negative, Influenza B negative, COVID antigen negative Labs: Lab Results 09/18/24 Range/Units 17:04 POC Influenza A Ag Negative (Negative) POC Influenza B Ag Negative (Negative) POC SARS CoV-2 Ag Negative (Negative) POC Grp A Strep Screen Negative (Negative) reviewed Critical Care Time Critical Care Time Critical Care Time: No Discharge Plan Discharge Clinical Impression: Left upper lobe pneumonia Qualifiers: Pneumonia type: due to unspecified organism Qualified Code(s): J18.9 - Pneumonia, unspecified organism Patient Disposition: Home, Self-Care Condition: Stable Instructions: Antibiotic Form, Pneumonia (ED) Additional Instructions: Increase fluids especially juices and water [id number] cough and cold medicine of your choice for your symptoms Zyrtec Claritin or Oly daily Continue your inhaler/nebulizer as directed Steroids as directed--take with food heat to the face 20-30 minutes 4-6 times a day for pain Salt water gargles, throat lozenges or throat sprays as desired Antibiotic as directed--finished the medication If your symptoms persist, change or worsen significantly before you can contact your personal physician then please, without delay, go to the emergency department for further evaluation. Follow-up with PCP in 7-10 days or sooner if needed Follow up with PCP soon in regards to your blood pressure which is elevated above threshold for referral. Blood pressure above 120/80 may indicate pre-hypertension. Quit smoking Patient Language: German Prescriptions: New azithromycin 250 mg tablet See Rx Instructions .ROUTE .COMPLEX Qty: 6 0RF Rx Instructions: For 250 mg dose pack: take 500 mg today (day 1), then 250 mg for 4 days (days 2-5) cefdinir 300 mg capsule 300 mg PO Q12H Qty: 20 0RF prednisone 20 mg tablet 20 mg PO BID Qty: 10 0RF albuterol sulfate 90 mcg/actuation HFA aerosol inhaler 2 puff inhalation QID PRN (Reason: shortness of breath or wheezing) Qty: 8.5 0RF Rx Instructions: Use 4 times daily for the next 2 days then use as needed No Action amlodipine [Norvasc] 5 mg tablet 5 mg PO DAILY Qty: 30 0RF Rx Instructions: not taking currently methylprednisolone [Medrol (Dom)] 4 mg tablets,dose pack See Rx Instructions .ROUTE .COMPLEX Qty: 21 0RF Rx Instructions: orally per package directions Follow-up/Referrals: PHYSICIAN,ELEMENTARY INSTRUCTIONAL COACH [Primary Care Provider] - Stand Alone Forms: Work/School Release IP Time of Disposition: 17:16 Quality Carrillo Coma Scale Eyes: Open Verbal: Oriented and Alert Motor: Follows Commands Carrillo Coma Total Score: 15
[2024-09-18 16:24] VITALS: BP 179/91; PULSE 80; RESP 15; TEMP 36.2; O2SAT 98
[2024-09-18 17:05] LABS: EDCOVIDSCREEN Negative (Negative); EDINFLUASCREEN Negative (Negative); EDINFLUBSCREEN Negative (Negative)
[2024-09-18 17:06] LABS: EDSTREPNEGPOS1 Negative (Negative)
== END 2024-09-18 17:22 | disposition home or self-care (01) ==
PROVIDERS: Emergency Provider Registered Nurse
DX: J18.1 Lobar pneumonia, unspecified organism (principal); Z20.822 Contact with and (suspected) exposure to COVID-19; I10 Essential (primary) hypertension; F17.210 Nicotine dependence, cigarettes, uncomplicated
CPT/HCPCS: 71046; 87081; 87426; 87804; 87880; 99213; G0463

== ENCOUNTER 2024-10-09 10:01 | Emergency (ER) | payer OTHER, SELFPAY ==
--- NOTE | ~2024-10-09 | XR_ITS ---
EXAMINATION: XR chest 2V DATE: 10/09/2024 10:23 INDICATION: Cough TECHNIQUE: frontal and lateral views of the chest were obtained. COMPARISON: Chest radiograph dated 09/18/2024 FINDINGS: Airspace opacity lingula which projects over the heart on the lateral projection and obscured left he art border on the frontal projection. Additional airspace opacity posterior right lung base. No pleur al effusion or pneumothorax Cardiomediastinal silhouette is normal. Mild thoracic spondylosis with ch ronic mild anterior wedging of a few lower thoracic vertebral bodies IMPRESSION: 1. Airspace opacity lingula and right lower lobe consistent with pneumonia. Reviewed, dictated and finalized at location B. CAL RESEARCH SCIENTIST
--- NOTE | 2024-10-09 10:05 | ED.URI ---
HPI - URI/Sore Throat General Chief Complaint: Upper Respiratory Infection Stated Complaint: SOB/cough Time Seen by Provider: 10/09/24 10:28 Source: patient and RN notes reviewed Mode of arrival: ambulatory Limitations: no limitations History of Present Illness HPI Narrative: 44-year-old male presents with concern for ongoing cough. Reports he was diagnosed with pneumonia few weeks ago, he did not finish his antibiotics. He restarted them recently when he was not feeling well. He reports body aches, cough, exertional shortness of breath. Denies fever MD elicited complaint: cough Related Data Allergies Allergy/AdvReac Type Severity Reaction Status Date / Time No Known Allergies Allergy Unknown Verified 10/09/24 10:10 Review of Systems Review of Systems: CONSTITUTIONAL: Denies malaise, chills, sweats, or fever. EYES: Denies visual changes, redness, or discharge. ENT: Reports rhinorrhea. Denies congestion, sinus pain, otalgia and sore throat. CARDIOVASCULAR: Denies chest pain, palpitations, or edema. RESPIRATORY: Reports cough, dyspnea. GASTROINTESTINAL: Denies abdominal pain, nausea, vomiting, diarrhea SKIN: Denies rash or itching. MUSCULOSKELETAL: Denies myalgia. NEUROLOGIC: Denies headache. All systems reviewed & are unremarkable except as noted in HPI and below PMFSH Past Medical History Medical History Depression Open ankle fracture ORIF left ankle with pinning History of IBS Hypertension Surgical History Surgical History No pertinent past surgical history Family History Family History Father Heart disease Social History Social History (Updated 09/21/24 @ 10:48 by Vicki Linda NP) Smoking packs per day: 1 Smoking cigarettes per day: 20.0 Years smoked: 20 Smoking pack-years: 20.00 Smoking status: Current every day smoker Tobacco type: cigarettes Alcohol intake: current Alcohol use details: social Substance use: unknown Living arrangements: with family Gender identity (if verbalized by the patient): Male Comments At time of signature, agree with nursing past medical, surgical, social and family history. There is no relevant family history pertinent to the presenting complaint Exam Narrative: GENERAL: Well-appearing, well-nourished, and in no acute distress. HEAD: Normocephalic EYES: PERRLA, conjunctivae clear ENT: Nares clear. Mucous membranes moist. Oropharynx not erythematous without lesions. Tonsils not enlarged and without exudate, no drooling, no hoarseness, no trismus, uvula midline. NECK: Supple. No lymphadenopathy CHEST: Scattered rhonchi, breath sounds diminished on the right. No rales, or stridor. No respiratory distress, speaks in full sentences. HEART: Regular rate and rhythm. No murmur heard. SKIN: Warm, dry, no rash. NEURO: Alert and oriented x3. PSYCH: Normal mood and affect Course Course Emergency Course: Patient is aware of diagnosis, understands and agrees to treatment plan. Anticipatory guidance given. Patient agrees to follow-up as directed and is aware of reasons to seek care at the emergency department. Portions of this record may have been created with voice recognition software Level of Care: Express Care Visit Vital Signs Vital signs: Reviewed. MDM - URI/Sore Throat MDM Narrative Medical decision making narrative: Differential diagnosis considered: Silva virus, strep pharyngitis, allergic rhinitis, upper respiratory tract infection, sinusitis, rhinosinusitis, nasopharyngitis. viral pharyngitis, otitis media, otitis externa, pneumonia, bronchitis, viral cough syndrome, viral syndrome, and influenza. Exam findings show no acute concerns or changes; patient is non-toxic appearing and is in no distress. Patient is appropriate for outpatient treatment and follow-up. Lab Data Attestation: I reviewed the patient's lab results. Imaging Data My impression: Images reviewed, interpreted by radiologist, agree, see report. Radiologist's impression: EXAMINATION: XR chest 2V DATE: 10/09/2024 10:23 INDICATION: Cough TECHNIQUE: frontal and lateral views of the chest were obtained. COMPARISON: Chest radiograph dated 09/18/2024 FINDINGS: Airspace opacity lingula which projects over the heart on the lateral projection and obscured left heart border on the frontal projection. Additional airspace opacity posterior right lung base. No pleural effusion or pneumothorax Cardiomediastinal silhouette is normal. Mild thoracic spondylosis with chronic mild anterior wedging of a few lower thoracic vertebral bodies IMPRESSION: 1. Airspace opacity lingula and right lower lobe consistent with pneumonia. Critical Care Time Critical Care Time Critical Care Time: No Discharge Plan Discharge Clinical Impression: Pneumonia Patient Disposition: Home, Self-Care Condition: Stable Instructions: Antibiotic Form, Pneumonia (ED) Additional Instructions: Pneumonia is a lung infection that can cause a fever, cough, and trouble breathing. Please continue all antibiotics as directed until complete. Nutrition is important - eat small frequent meals. Get lots of rest and drink fluids. Call your Primary Care Doctor upon arrival home from the hospital and make a follow-up appointment in 3-5 days. If your cough worsens, you develop a persistent fever you develop shaking chills, a fast heartbeat, trouble breathing and/or feel you are are breathing much faster than usual, call your Primary Care Doctor or go to the ER. Make sure you wash your hands frequently. Patient Language: Moroccan Prescriptions: New levofloxacin 750 mg tablet 750 mg PO DAILY 10 Days Qty: 10 0RF albuterol sulfate 90 mcg/actuation HFA aerosol inhaler 2 puff INHALATION QID PRN (Reason: shortness of breath or wheezing) Qty: 8.5 0RF Discontinued azithromycin 250 mg tablet See Rx Instructions .ROUTE .COMPLEX Qty: 6 0RF Rx Instructions: For 250 mg dose pack: take 500 mg today (day 1), then 250 mg for 4 days (days 2-5) cefdinir 300 mg capsule 300 mg PO Q12H Qty: 20 0RF No Action amlodipine [Norvasc] 5 mg tablet 5 mg PO DAILY Qty: 30 0RF Rx Instructions: not taking currently methylprednisolone [Medrol (Dom)] 4 mg tablets,dose pack See Rx Instructions .ROUTE .COMPLEX Qty: 21 0RF Rx Instructions: orally per package directions prednisone 20 mg tablet 20 mg PO BID Qty: 10 0RF albuterol sulfate 90 mcg/actuation HFA aerosol inhaler 2 puff inhalation QID PRN (Reason: shortness of breath or wheezing) Qty: 8.5 0RF Rx Instructions: Use 4 times daily for the next 2 days then use as needed Follow-up/Referrals: PHYSICIAN,ENTRY LEVEL INSTALLATION TECHNICIAN [Primary Care Provider] - Time of Disposition: 10:44
[2024-10-09 10:08] VITALS: BP 180/100; PULSE 83; RESP 20; TEMP 36.7; O2SAT 95
== END 2024-10-09 10:50 | disposition home or self-care (01) ==
PROVIDERS: Emergency Provider Nurse Practitioner
DX: J18.9 Pneumonia, unspecified organism (principal); F17.210 Nicotine dependence, cigarettes, uncomplicated; I10 Essential (primary) hypertension
CPT/HCPCS: 71046; 99213; G0463

== ENCOUNTER 2024-12-11 11:54 | Emergency (ER) | payer OTHER, SELFPAY ==
[2024-12-11 12:06] VITALS: BP 194/111; PULSE 89; RESP 20; TEMP 37.1; O2SAT 96
--- NOTE | 2024-12-11 12:16 | ED_ITS ---
HPI - Nausea/Vomiting/Diarrhea General Chief complaint: Nausea/Vomiting/Diarrhea Stated complaint: Diarrhea Source: patient and RN notes reviewed Mode of arrival: ambulatory Limitations: no limitations History of Present Illness HPI Narrative: 44-year-old male presented for complaint of abdominal cramping and diarrhea for 2 days. Has taken Pepto-Bismol. Denies significant abdominal pain, nausea or fever. Says he had a small episode of vomiting bile this morning. Eating crackers, reports decreased appetite. Daily smoker. Related Data Allergies Allergy/AdvReac Type Severity Reaction Status Date / Time No Known Allergies Allergy Unknown Verified 12/11/24 12:15 Review of Systems Review of Systems: CONSTITUTIONAL: Denies body aches, fever, chills ENT: Denies rhinorrhea, congestion CARDIOVASCULAR: Denies chest pain, palpitations, or edema. RESPIRATORY: Denies cough or dyspnea. GASTROINTESTINAL: Endorses abdominal cramping, diarrhea. Denies nausea, vomiting, melena SKIN: Denies rash MUSCULOSKELETAL: Denies back pain, joint pain, or myalgia. NEUROLOGIC: Denies headache, numbness, tingling, or weakness. All systems reviewed & are unremarkable except as noted in HPI and below PMFSH Past Medical History Medical History Depression Open ankle fracture ORIF left ankle with pinning History of IBS Hypertension Surgical History Surgical History No pertinent past surgical history Family History Family History Father Heart disease Social History Social History Smoking packs per day: 1 Smoking cigarettes per day: 20.0 Years smoked: 20 Smoking pack-years: 20.00 Smoking status: Current every day smoker Tobacco type: cigarettes Alcohol intake: current Alcohol use details: social Substance use: unknown Living arrangements: with family Gender identity (if verbalized by the patient): Male Comments At time of signature, I have reviewed and agree with nursing past medical, darleen gical, social and family history unless otherwise noted. Please see nursing chart for further information. There is no relevant family history pertinent to the presenting complaint Exam Narrative: GENERAL: Well-appearing EYES: EOMI. Conjunctivae normal. ENT: Mucous membranes pink and moist. CHEST: No respiratory distress. Clear to auscultation. HEART: Regular rate and rhythm. No murmur appreciated. Normal peripheral pulses. ABDOMEN: abd soft, large, body habitus limits exam. hypoactive active bowel sounds. nontender abdomen; No guarding, rebound tenderness, asymmetry EXTREMITIES: Normal range of motion. SKIN: Warm, dry, no rash. Capillary refill normal. Normal skin turgor. NEURO: No focal deficits. Alert and oriented x3. PSYCH: Normal affect. Course Course Emergency Course: Patient is aware of diagnosis, understands and agrees to treatment plan. Anticipatory guidance given. Patient agrees to follow-up as directed and is aware of reasons to seek care at the emergency department. Portions of this record may have been created with voice recognition software Level of Care: Express Care Visit Vital Signs Vital signs: Vital Signs Temperature 98.8 F 12/11/24 12:06 Pulse Rate 89 12/11/24 12:06 Respiratory Rate 20 12/11/24 12:06 Blood Pressure 194/111 H 12/11/24 12:06 Pulse Oximetry 96 12/11/24 12:06 Oxygen Delivery Room Air 12/11/24 12:06 Temperature 98.8 F 12/11/24 12:06 Pulse Rate 89 12/11/24 12:06 Respiratory Rate 20 12/11/24 12:06 Blood Pressure 194/111 H 12/11/24 12:06 Pulse Oximetry 96 12/11/24 12:06 Oxygen Delivery Room Air 12/11/24 12:06 MDM - Nausea/Vomiting/Diarrhea MDM Narrative Medical decision making narrative: Discussed physical exam findings and possible etiologies of abdominal discomfort and diarrhea. Pt will try supportive measures, imodium and dicyclomine and monitor symptoms closely. Aware of elevated BP, does not take meds as directed. Advised supportive measures and signs/symptoms to go to the ER. Pt is appropriate for outpt treatment and f/u. Differential Diagnosis Differential diagnosis: Likely traveler's diarrhea, food poisoning, gastroenteritis, clostridium difficile infection and dehydration Discharge Plan Discharge Clinical Impression: Diarrhea, Elevated blood pressure reading Patient Disposition: Home, Self-Care Condition: Stable Instructions: Acute Diarrhea (ED), Hypertension (ED) Additional Instructions: Your blood pressure reading was elevated (above 120/80) please follow-up with your primary care provider for further evaluation and management. Call today. If you develop worsening Blood Pressure symptoms, (headache, vision changes, dizziness, vomiting, chest pain, etc) go to the ER. Call 911. Stay hydrated. Take small sips of fluid containing electrolytes frequently. Clear liquids (broth, jello, tea, sprite, pedialyte) [place] foods (bananas, rice, applesauce, toast, crackers) Avoid fatty, greasy, fried or spicy foods. Limit dairy until symptoms are improved. [id number] Imodium according to package directions for diarrhea Recommend probiotic such as align or lactobacillus to help with symptoms. You should go to the hospital if you experience persistent nausea and vomiting that does not resolve and does not allow you to tolerate any food or fluids, fevers, increasing abdominal pain, persistent diarrhea, dizziness, or for any other concerns. Follow up with primary care provider in 3 days. Patient Language: Tajik Prescriptions: New dicyclomine 20 mg tablet 20 mg PO QID Qty: 20 0RF No Action levofloxacin 750 mg tablet 750 mg PO DAILY 10 Days Qty: 10 0RF albuterol sulfate 90 mcg/actuation HFA aerosol inhaler 2 puff INHALATION QID PRN (Reason: shortness of breath or wheezing) Qty: 8.5 0RF amlodipine [Norvasc] 5 mg tablet 5 mg PO DAILY Qty: 30 0RF Rx Instructions: not taking currently methylprednisolone [Medrol (Dom)] 4 mg tablets,dose pack See Rx Instructions .ROUTE .COMPLEX Qty: 21 0RF Rx Instructions: orally per package directions prednisone 20 mg tablet 20 mg PO BID Qty: 10 0RF albuterol sulfate 90 mcg/actuation HFA aerosol inhaler 2 puff inhalation QID PRN (Reason: shortness of breath or wheezing) Qty: 8.5 0RF Rx Instructions: Use 4 times daily for the next 2 days then use as needed Follow-up/Referrals: PHYSICIAN,SENIOR NURSE MANAGER [Primary Care Provider] - Stand Alone Forms: Work/School Release IP Time of Disposition: 12:20
== END 2024-12-11 12:24 | disposition home or self-care (01) ==
PROVIDERS: Emergency Provider Nurse Practitioner Family
DX: R19.7 Diarrhea, unspecified (principal); I10 Essential (primary) hypertension; F17.210 Nicotine dependence, cigarettes, uncomplicated
CPT/HCPCS: 99213; G0463

== ENCOUNTER 2025-02-04 11:16 | Emergency (ER) | payer OTHER, SELFPAY ==
[2025-02-04 11:22] VITALS: BP 179/89; PULSE 74; RESP 20; TEMP 36.2; O2SAT 96
--- NOTE | 2025-02-04 11:28 | ED.EYEPROB ---
HPI - Eye Problem General Chief complaint: Eye Problems Stated complaint: Left Eye Problem Time Seen by Provider: 02/04/25 11:18 Source: patient Mode of arrival: ambulatory Limitations: no limitations History of Present Illness HPI Narrative: Taras is a 44-year-old male patient presenting to the clinic today with complaints of left eye pain/irritation. He reports he feels as though there may be something in his eye. Symptoms have been going on for over 1 week. His boss sent him in today to check for pinkeye. He works around constantly and is concerned that he may have got some dust or concrete in his eye. Has been having some clear eye drainage and some blurry vision in the left eye. Related Data Allergies Allergy/AdvReac Type Severity Reaction Status Date / Time No Known Allergies Allergy Unknown Verified 02/04/25 11:30 Review of Systems Review of Systems: Pertinent positives per HPI. Patient denies any fever, chills, rash, headache, visual changes, dizziness, cough, shortness of breath, chest pain, palpitations, nausea, vomiting, diarrhea, constipation, abdominal pain, or any urinary issues. [facility] Past Medical History Medical History Depression Open ankle fracture ORIF left ankle with pinning History of IBS Hypertension Surgical History Surgical History No pertinent past surgical history Family History Family History Father Heart disease Social History Social History Smoking packs per day: 1 Smoking cigarettes per day: 20.0 Years smoked: 20 Smoking pack-years: 20.00 Smoking status: Current every day smoker Tobacco type: cigarettes Alcohol intake: current Alcohol use details: social Substance use: unknown Living arrangements: with family Gender identity (if verbalized by the patient): Male Comments At the time of my signature, I reviewed and agree with the nursing past medical, surgical, social, and family history. There is no relevant family history pertinent to the patient complaint. Exam Narrative: General: Well-developed, morbidly obese, in no apparent distress Head: Normocephalic, atraumatic Eyes: Pupils equally round and reactive to light bilaterally, EOM intact, left sclera and conjunctive injected, no discharge, left lower lip mildly swollen with excoriation, right lids normal Ears: TMs intact and clear, ear canals clear, no drainage, grossly hearing normal. Nose: Nares patent, no discharge, no inflammation, no sinus tenderness. Mouth: Oral pharynx without lesions or masses, good dentition, MMM. Neck: Supple, trachea midline, no enlargement of anterior or posterior cervical nodes, no thyroid masses or goiter palpable. Cardio: Regular rate and rhythm, s1 and s2 normal, no murmur appreciated. Resp: Clear to auscultation bilaterally, no rhonchi, rales, wheezing or rubs Course Course Emergency Course: Portions of this record may have been created with voice recognition software. Level of Care: Express Care Visit Vital Signs Vital signs: Vital Signs Temperature 36.2 C L 02/04/25 11:22 Pulse Rate 74 02/04/25 11:22 Respiratory Rate 20 02/04/25 11:22 Blood Pressure 179/89 H 02/04/25 11:22 Pulse Oximetry 96 02/04/25 11:22 Oxygen Delivery Room Air 02/04/25 11:22 Temperature 36.2 C L 02/04/25 11:22 Pulse Rate 74 02/04/25 11:22 Respiratory Rate 20 02/04/25 11:22 Blood Pressure 179/89 H 02/04/25 11:22 Pulse Oximetry 96 02/04/25 11:22 Oxygen Delivery Room Air 02/04/25 11:22 Vital signs reviewed Procedures Other Procedure Procedure 1: Other Procedure: Two drops of topical tetracaine anesthetic was instilled with good anesthesia. Fluorescein stain of the left eye was performed without uptake of dye. No epithelial defect was noted. NO FB, ulcer or dendritic lesions. Upper lid was everted and no FB or lesions were noted. NO Braydon sign. Normal saline irrigation eye solution was performed and the patient tolerated the procedure well, no adverse reaction or complications. Noted visual acuity. MDM - Eye Problem MDM Narrative Medical decision making narrative: At the time of visit patient is resting comfortably on the exam table. Patient appears to be nontoxic. Procedures: Wood's Lamp exam was performed in the clinic today. No sign of foreign body, corneal abrasion, or Braydon sign. Plan: I suspect patient has left lower eyelid irritation possibly due to past foreign body. Will send in prescription for E-Mycin ointment to help soothe the area and cover for secondary infection. Supportive measures were discussed with the patient and they voiced understanding discharge instructions and agrees to treatment plan. Return precautions reviewed Differential Diagnosis Differential diagnosis: Likely corneal abrasion, conjunctivitis, acute iritis, hyphema, periorbital cellulitis, subconjunctival hemorrhage, glaucoma, corneal ulcer and ruptured globe Discharge Plan Discharge Clinical Impression: Irritation of eyelid Patient Disposition: Home Condition: Stable Instructions: Antibiotic Form, Eye Pain (ED) Additional Instructions: Practice good hand washing techniques Avoid touching eyes Instill eye ointment as [id number] May use warm moist washcloth to help remove eye discharge If eyes are matted shut-do not pry eyes open-use a warm moist cloth to loosen matting and wipe matter away from eye May take Tylenol/Motrin as needed for pain or fever May take Benadryl as needed for itching Follow-up with your PCP in 3-5 days if symptoms persist or sooner if they worsen Go to the emergency room if you develop any fever that is not controlled by Tylenol or Motrin, loss of vision, eye pain, increase eye swelling,visual changes, headache, confusion, lethargy, weakness, chest pain, or shortness of breath. Patient Language: Kazakh Prescriptions: New erythromycin 5 mg/gram (0.5 %) ointment 1 applic LEFT EYE Q8H 7 Days Qty: 3.5 0RF No Action levofloxacin 750 mg tablet 750 mg PO DAILY 10 Days Qty: 10 0RF amlodipine [Norvasc] 5 mg tablet 5 mg PO DAILY Qty: 30 0RF Rx Instructions: not taking currently methylprednisolone [Medrol (Dom)] 4 mg tablets,dose pack See Rx Instructions .ROUTE .COMPLEX Qty: 21 0RF Rx Instructions: orally per package directions prednisone 20 mg tablet 20 mg PO BID Qty: 10 0RF dicyclomine 20 mg tablet 20 mg PO QID Qty: 20 0RF Follow-up/Referrals: PHYSICIAN,PRODUCT MANAGER [employer] [Primary Care Provider] - Stand Alone Forms: Work/School Release IP Time of Disposition: 11:47 Quality NIHSS Nursing Documentation ED NIHSS nursing documentation: reviewed/agree
[2025-02-04] MEDS: FLUORESCEIN SOD 1 MG/STRIP LEFT EYE (11:38)
[2025-02-04] MEDS: TETRACAINE HCL 0.5% OPHTH SOLN 4 ML BTL LEFT EYE (11:38)
[2025-02-04] MEDS: DACRIOSE EYE IRRIGATION 118 ML BOTTLE LEFT EYE (11:39)
--- OUTSIDE RECORDS SUMMARY | 2025-02-04 12:46 | XMS_ITS | Clinical Summary ---
Author Organization [facility] Address [address] [place] [address] Phone Care Team Providers Care Mining Machinery Assembler Name Role Phone Provider, None Primary Care Provider Unavailabl e Allergies No known active allergies Medications amLODIPine (NORVASC) 5 MG TabletIndicatio ns:Hypertension Take 1 Tablet by mouth daily. Indications: High Blood Pressure 30 Tablet 12/16/2024 Active Encounters Date Type Department Care Team Description 12/15/2024 5:55 PM CDT - 12/16/2024 1:25 AM CDT Emergency [facility] [address] [place] [address] Romaine Benson MD Discharge Disposition: Discharged to home or Selfcare 12/15/2024 Travel from Last 3 Months Social History Tobacco Use Types Packs/Day Years Used Date Smoking Tobacco: Never Assessed Sex and Gender Information Value Date Recorded Sex Assigned at Not on file Legal Sex Male 5:48 PM CDT Gender Identity Not on file Sexual Orientation Not on file Last Filed Vital Signs Vital Sign Reading Time Taken Comments Blood Pressure 163/95 12/16/2024 12:45 AM CDT Pulse 71 12/16/2024 1:15 AM CDT Temperature 36.4 C (97.5 F) 12/15/2024 5:52 PM CDT Respiratory Rate 17 12/15/2024 8:34 PM CDT Oxygen Saturation 93% 12/16/2024 1:15 AM CDT Inhaled Oxygen Concentration - - Weight 222.3 kg (490 lb) 12/15/2024 5:52 PM CDT Height 193 cm (6' 4 ) 12/15/2024 5:52 PM CDT Body Mass Index 59.64 12/15/2024 5:52 PM CDT Plan of Treatment Health Maintenance Due Date Last Done Comments Hepatitis C Virus (HCV) Screening 1979 TdaP Immunization 1979 Hepatitis B Immunization (1 of 3 - 19+ 3-dose series) 1998 Influenza Immunization (#1) 2024 SARS-COV-2 Immunization ( - season) 2024 02/22/2021 Colonoscopy 2024 Colorectal Cancer Screening 2024 Respiratory Syncytial Virus (RSV) Immunization (Adult) (1 - 1-dose 75+ series) 2054 Meningococcal Immunization (ACWY) Aged Out No longer eligible based on patient's age to complete this topic Pneumococcal Immunization Combined Aged Out No longer eligible based on patient's age to complete this topic Rotavirus Immunization Aged Out No lo nger eligible based on patient's age to complete this topic Procedures Procedure Name Priority Date/Time Associated Diagnosis Comments XR ABDOMEN 2 VIEWS (SUPINE WITH DECUBITUS OR ERECT VIEWS) STAT 12/15/2024 11:20 PM CDT URINALYSIS REFLEX IF INDICATED BY ABNORMAL RESULTS STAT 12/15/2024 7:36 PM CDT CULTURE, URINE STAT 12/15/2024 7:36 PM CDT GOLD TOP TUBE STAT 12/15/2024 6:45 PM CDT BLUE TOP TUBE STAT 12/15/2024 6:45 PM CDT CBC WITH AUTO DIFFERENTIAL STAT 12/15/2024 6:45 PM CDT LIPASE STAT 12/15/2024 6:45 PM CDT EXTRA TUBES STAT 12/15/2024 6:45 PM CDT COMPLETE BLOOD COUNT (CBC) WITH DIFF STAT 12/15/2024 6:45 PM CDT CMP (COMPREHENSIVE METABOLIC PANEL) STAT 12/15/2024 6:45 PM CDT RSV,SARS-COV-2,INFLUE NZA A&B BY PCR STAT 12/15/2024 6:45 PM CDT from Last 3 Months Results * XR ABDOMEN 2 VIEWS (SUPINE WITH DECUBITUS OR ERECT VIEWS) (12/15/2024 11:20 PM CDT) Anatomical Region Laterality Modality Abdomen N/A Digital Radiogra phy 12/15/2024 11:3 8 PM CDT Impressions 12/15/2024 11:40 PM CDT IMPRESSION: No bowel obstruction or other acute abnormality identified. Narrative 12/15/2024 11:40 PM CDT EXAM DESCRIPTION: XR ABDOMEN 2 VIEWS (SUPINE WITH DECUBITUS OR ERECT VIEWS) REASON FOR STUDY: Abdominal pain/cramping with diarrhea x 1 week. TECHNIQUE: Upright and supine views of the abdomen. COMPARISON: None FINDINGS: LUNG BASES: Clear. Heart size normal. FREE-AIR: None. BOWEL: Nonobstructive bowel gas pattern. OTHER SOFT TISSUES: Unremarkable. BONES: Spinal endplate osteophytes. THIS IS AN ELECTRONICALLY VERIFIED FINAL REPORT 12/15/2024 11:38 PM - Electronically signed by Dago Osman M.D. AR: KENIA Report ID: [id number] Reading Location: [id number] Procedure Note Dago Osman MD - 12/15/2024 EXAM DESCRIPTION: XR ABDOMEN 2 VIEWS (SUPINE WITH DECUBITUS OR ERECT VIEWS) REASON FOR STUDY: Abdominal pain/cramping with diarrhea x 1 week. TECHNIQUE: Upright and supine views of the abdomen. COMPARISON: None FINDINGS: LUNG BASES: Clear. Heart size normal. FREE-AIR: None. BOWEL: Nonobstructive bowel gas pattern. OTHER SOFT TISSUES: Unremarkable. BONES: Spinal endplate osteophytes. THIS IS AN ELECTRONICALLY VERIFIED FINAL REPORT 12/15/2024 11:38 PM - Electronically signed by Dago Osman M.D. AR: KENIA Report ID: [id number] Reading Location: [id number] IMPRESSION: No bowel obstruction or other acute abnormality identified. Romaine Benson MD IMG DIAGNOSTIC ORDERABLES Final Result * (ABNORMAL) URINALYSIS REFLEX IF INDICATED BY ABNORMAL RESULTS (12/15/2024 7:36 PM CDT) SPECIFIC GRAVITY 1.020 1.003 - 1.030 12/15/2024 8:48 PM CDT [facility] URINE PH 6.0 5.0 - 9.0 12/15/2024 8:48 PM CDT [facility] WBC ESTERASE 25 /ul(A) Negative 12/15/2024 8:48 PM CDT [facility] NITRITE Negative Negative 12/15/2024 8:48 PM CDT [facility] PROTEIN, RANDOM URINE 30 mg/dL(A) Negative 12/15/2024 8:48 PM CDT [facility] URINE GLUCOSE, QUAL Negative Negative 12/15/2024 8:48 PM CDT [facility] URINE KETONES Negative Negative 12/15/2024 8:48 PM CDT [facility] UROBILINOGEN Normal Normal mg/dL 12/15/2024 8:48 PM CDT [facility] URINE BLOOD 10 /uL(A) Negative lady/ul 12/15/2024 8:48 PM CDT [facility] URINALYSIS COLOR Yellow 12/16/19 8:48 PM CDT [facility] URINALYSIS CLARITY Clear 12/15/2024 8:48 PM CDT [facility] WBC (Urine) 11-20(A) Negative, 0-5 /hpf 12/15/2024 8:48 PM CDT [facility] URINE RBC'S 3-5(A) Negative, 0-2 /hpf 12/15/2024 8:48 PM CDT [facility] EPITHELIAL CELLS Small amount /lpf 2024 8:48 PM CDT [facility] BACTERIA, URINE Few(A) Negative /hpf 12/15/2024 8:48 PM CDT [facility] Urine URINE SPECIMEN OBTAINED BY CLEAN CATCH PROCEDURE / Unknown Non-Phlebotomy Collection / Unknown 12/15/2024 7:36 PM CDT 12/15/2024 7:44 PM CDT Romaine Benson MD URINE ORDERABLES Final Re sult [facility] [address] [place] [address] * Culture, Urine (12/15/2024 7:36 PM CDT) Pathologist [facility] CULTURE RESULTS Mixed Growth of One or More Distal Urethral Contaminants 12/17/2024 10:10 AM CDT [facility] Urine URINE SPECIMEN OBTAINED BY CLEAN CATCH PROCEDURE / Unknown Non-Phlebotomy Collection / Unknown 12/15/2024 7:36 PM CDT 12/15/2024 7:44 PM CDT Romaine Benson MD MICROBIOLOGY - GENERAL OR DERABLES Final Result [facility] [address] [place] [address], [place] * RSV,SARS-COV-2,INFLUENZA A&B BY PCR (12/15/2024 6:45 PM CDT) FLU A Negative Negative, Error 12/15/2024 7:59 PM CDT [facility] FLU B Negative Negative 12/15/2024 7:59 PM CDT [facility] RESP SYNC VIRUS Negative Negative 7:59 PM CDT [facility] SARSCOV2 NOT DETECTED (Reference Range for this test is Not Detected) 12/15/2024 7:59 PM CDT [facility] Comment:This test was perfor med by a Reverse Depilatory Painter PCR Method. Swab NASOPHARYNGEAL STRUCTURE / Unknown Non-Phlebotomy Collection / Unknown 12/15/2024 6:45 PM CDT 12/15/2024 6:59 PM CDT Romaine Benson MD MICROBIOLOGY - GENERAL OR DERABLES Final Result Performing Organization Address [facility] Co de Phone Number [facility] [address] [place] [address] * Gold Top Tube (12/15/2024 6:45 PM CDT) Blood No Phlebotomy Charged / Unknown 12/15/2024 6:45 PM CDT 12/15/2024 7:01 PM CDT Romaine Benson MD CHEMISTRY ORDERABLES Ewa l Result Performing Organization Address [facility] Co de Phone Number [facility] [address] [place] [address] * Blue Top Tube (12/15/2024 6:45 PM CDT) Blood No Phlebotomy Charged / Unknown 12/15/2024 6:45 PM CDT 12/15/2024 7:01 PM CDT Romaine Benson MD HEMATOLOGY ORDERABLES Fin al Result Performing Organization Address [facility] Co de Phone Number [facility] [address] [place] [address] * (ABNORMAL) CBC with Auto Differential (12/15/2024 6:45 PM CDT) WBC 6.73 4.00 - 12.00 10(3)/mcL 12/15/2024 7:08 PM CDT [facility] RBC 4.52 4.40 - 5.80 10(6)/mcL 12/15/2024 7:08 PM CDT [facility] HEMOGLOBIN (HGB) 15.4 13.0 - 16.5 g/dL 12/15/2024 7:08 PM CDT [facility] HEMATOCRIT (HCT) 44.6 38.0 - 50.0 % 12/15/2024 7:08 PM CDT [facility] MCV 98.7(H) 82.0 - 96.0 fL 12/15/2024 7:08 PM CDT [facility] MCH 34.1(H) 26.0 - 32.0 pg 12/15/2024 7:08 PM CDT [facility] MCHC 34.5 31.0 - 36.0 g/dL 12/15/2024 7:08 PM CDT [facility] PLATELET COUNT 248 140 - 440 10(3)/mcL 12/15/2024 7:08 PM CDT [facility] RDW 12.9 11.8 - 15.5 % 12/15/2024 7:08 PM CDT [facility] MPV 8.9 8.0 - 12.6 fL 12/15/2024 7:08 PM CDT [facility] NEUTROPHILS 61.4 40.0 - 68.0 % 12/15/2024 7:08 PM CDT [facility] LYMPHOCYTES 29.0 19.0 - 49.0 % 12/15/2024 7:08 PM CDT [facility] MONOCYTES 7.0 3.0 - 13.0 % 12/15/2024 7:08 PM CDT [facility] EOSINOPHILS 1.6 0.0 - 8.0 % 12/15/2024 7:08 PM CDT [facility] BASOPHILS 1.0 0.0 - 1.0 % 12/15/2024 7:08 PM CDT [facility] ABSOLUTE NEUTROPHILS 4.13 1.40 - 5.30 10(3)/mcL 12/15/2024 7:08 PM CDT [facility] ABSOLUTE LYMPHOCYTES 1.95 0.90 - 3.30 10(3)/mcL 12/15/2024 7:08 PM CDT [facility] ABSOLUTE MONOCYTES 0.47 0.10 - 0.90 10(3)/mcL 12/15/2024 7:08 PM CDT [facility] ABSOLUTE EOSINOPHIL 0.11 0.00 - 0.50 10(3)/mcL 12/15/2024 7:08 PM CDT [facility] ABSOLUTE BASOPHILS 0.07 0.00 - 0.10 10(3)/mcL 12/15/2024 7:08 PM CDT [facility] NRBC PER 100 WBC 0 12/16/19 25 7:08 PM CDT [facility] Blood Venipuncture / Unknown 12/15/2024 6:45 PM CDT 12/15/2024 6:59 PM CDT Romaine Benson MD HEMATOLOGY ORDERABLES Fin al Result Performing Organization Address City/[facility]/ZIP Co de Phone Number [facility] [address] [place] [address] * Lipase (12/15/2024 6:45 PM CDT) LIPASE 13 8 - 78 U/L 12/15/2024 11:43 PM CDT [facility] Blood Venipuncture / Unknown 12/15/2024 6:45 PM CDT 12/15/2024 6:59 PM CDT Romaine Benson MD CHEMISTRY ORDERABLES Ewa l Result [facility] [address] [place] [address] * (ABNORMAL) CMP (Comprehensive Metabolic Panel) (12/15/2024 6:45 PM CDT) SODIUM 140 136 - 145 mmol/L 12/15/2024 7:31 PM CDT [facility] POTASSIUM 4.2 3.5 - 5.1 mmol/L 12/15/2024 7:31 PM CDT [facility] CHLORIDE 103 98 - 107 mmol/L 12/15/2024 7:31 PM CDT [facility] CO2, VENOUS 25 22 - 30 mmol/L 12/15/2024 7:31 PM CDT [facility] ANION GAP 16.2 <18.0 mmol/L 12/15/2024 7:31 PM CDT [facility] GLUCOSE 106(H) 70 - 99 mg/dL 12/15/2024 7:31 PM CDT [facility] BUN 15 9 - 21 mg/dL 12/15/2024 7:31 PM T [facility] CREATININE, BLOOD 0.84 0.70 - 1.30 mg/dL 12/15/2024 7:31 PM CDT [facility] BUN/CREATININE RATIO 18 12 - 20 ratio 12/15/2024 7:31 PM CDT [facility] TOTAL PROTEIN 7.3 6.0 - 8.0 g/dL 12/15/2024 7:31 PM CDT [facility] ALBUMIN 4.2 3.5 - 5.0 g/dL 12/15/2024 7:31 PM T [facility] A/G RATIO 1.4 1.0 - 2.2 12/15/2024 7:31 PM CDT [facility] CALCIUM 8.8 8.7 - 10.5 mg/dL 12/15/2024 7:31 PM T [facility] T BILI 0.5 0.2 - 1.2 mg/dL 12/15/2024 7:31 PM CDT [facility] SGOT (AST) 81(H) <43 U/L 12/15/2024 7:31 PM T [facility] SGPT (ALT) 65(H) <56 U/L 12/15/2024 7:31 PM CDT [facility] ALKALINE PHOSPHATASE 77 40 - 150 U/L 12/15/2024 7:31 PM CDT [facility] GFR, ESTIMATED >60 >=60 12/15/2024 7:31 PM CDT [facility] Comment: Creatinine Clearance is the preferred criteria for selecting drug dose adjustments in renally impaired patients. The GFR is provided as additional pertinent clinical information. GFR is reported in mL/min/1.73 sq m. Calculation based on the Chronic Kidney Disease Epidemiology Collaboration (CKD- EPI) equation refit without adjustment for race. GFR, EST. >60 >=60 025 7:31 PM CDT [facility] GFR, EST. NONAFRICAN >60 >=60 12/15/2024 7:31 PM CDT [facility] Blood Venipuncture / Unknown 12/15/2024 6:45 PM CDT 12/15/2024 6:59 PM CDT us Romaine Benson MD CHEMISTRY ORDERABLES Ewa l Result Performing Organization Address City/State/[facility] Co de Phone Number [facility] [address] [place] [address] from Last [address] [place] [address] Care Teams Mining Machinery Assembler Relationship Specialty Start Date End Date Provider, None [place] PCP - General 12/15/24
== END 2025-02-04 11:55 | disposition home or self-care (01) ==
PROVIDERS: Emergency Provider Nurse Practitioner Family
DX: H02.89 Other specified disorders of eyelid (principal); I10 Essential (primary) hypertension; K58.9 Irritable bowel syndrome, unspecified; F17.210 Nicotine dependence, cigarettes, uncomplicated
CPT/HCPCS: 99213; A9270; G0463

== ENCOUNTER 2025-03-18 16:54 | Emergency (ER) | payer SELFPAY ==
--- NOTE | ~2025-03-18 | XR_ITS ---
XR foot LT min 3V Ordering provider: Janice Serrano NP History: . pain to 3rd-5th toes AND METATARSALS, HYPEREXTENSION INJURY . Comparison: None. FINDINGS: BONES: No acute fracture or dislocation. JOINT SPACES: Narrowing of the proximal and distal interphalangeal joints. 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 No tarsal coalition. SOFT TISSUES: Normal. Calcaneal spur. IMPRESSION: No acute osseous abnormality left foot. Reviewed, dictated and finalized at location A.
[2025-03-18 17:04] VITALS: BP 182/101; PULSE 92; RESP 22; TEMP 36.1; O2SAT 97
--- NOTE | 2025-03-18 17:23 | ED_ITS ---
HPI - Extremity Injury (Lower) General Chief Complaint: Extremity Injury, Lower Stated Complaint: Fall Injury/Toe Injury Time Seen by Provider: 03/18/25 17:23 Source: patient Mode of arrival: ambulatory Limitations: no limitations History of Present Illness HPI Narrative: 44-year-old male presents with complaint of pain, bruising and swelling to left foot. This morning was walking down steps in flip-flops, right foot flap slipped foot causing patient to tripped and hyper extended 3rd 4th and 5th toes left foot. Patient concern for fracture. Ambulatory with limp. All systems reviewed and negative except as noted above. Related Data Home Medications ?Medication ?Instructions ?Recorded ?Confirmed ?Last Taken ?Type No Home Medications 03/18/25 03/18/25 Unknown History Allergies Allergy/AdvReac Type Severity Reaction Status Date / Time No Known Allergies Allergy Unknown Verified 03/18/25 17:25 Review of Systems Review of Systems: CONSTITUTIONAL: Denies fever, chills, or sweats. EYES: Denies visual changes, redness, or discharge. ENT: Denies rhinorrhea, congestion, sore throat, or otalgia. CARDIOVASCULAR: Denies chest pain, palpitations, or edema. RESPIRATORY: Denies cough or dyspnea. GASTROINTESTINAL: Denies abdominal pain, nausea, vomiting, or diarrhea. GENITOURINARY: Denies dysuria or hematuria. SKIN: Denies rash or itching. MUSCULOSKELETAL: Denies back pain, joint pain, or myalgia. Reports pain, nausea and swelling to left foot. NEUROLOGIC: Denies headache, numbness, or weakness. PSYCHIATRIC: Denies anxiety or depression. All other systems reviewed are negative, except as documented in HPI. [facility] Past Medical History Medical History Depression Open ankle fracture ORIF left ankle with pinning History of IBS Hypertension Surgical History Surgical History No pertinent past surgical history Family History Family History Father Heart disease Social History Social History Smoking packs per day: 1 Smoking cigarettes per day: 20.0 Years smoked: 20 Smoking pack-years: 20.00 Smoking status: Current every day smoker Tobacco type: cigarettes Alcohol intake: current Alcohol use details: social Substance use: unknown Living arrangements: with family Gender identity (if verbalized by the patient): Male Comments At time of signature, agree with nursing past medical, surgical, social and family history. There is no relevant family history pertinent to the presenting complaint. Exam Narrative: GENERAL: This is a well-nourished, well-developed patient, in no apparent distress. HEAD: normocephalic, atraumatic. EYES: PERRL. Sclera clear/white. Vision is grossly intact. EARS: External ears normal NOSE: External nose normal NECK: Neck supple, non-tender without lymphadenopathy, masses or thyromegaly. CARDIOVASCULAR: Regular rate and rhythm without murmurs, gallops, or rubs. RESPIRATORY: Clear to auscultation. Breath sounds equal bilaterally. No wheezes, rales, or rhonchi. SKIN: warm, Dry, intact with no suspicious lesions or rash, good texture and turgor. NEURO: awake, alert, and oriented to person, place and time. There were no obvious focal neurologic abnormalities. EXTREMITIES: Bruising and swelling to left foot. Tenderness to 3rd 4th 5th toes and 3rd and 4th distal metatarsal. No deformity noted. Course Course Level of Care: Express Care Visit Vital Signs Vital signs: Vital Signs Temperature 36.1 C L 03/18/25 17:04 Pulse Rate 92 03/18/25 17:04 Respiratory Rate 22 H 03/18/25 17:04 Blood Pressure 182/101 H 03/18/25 17:04 Pulse Oximetry 97 03/18/25 17:04 Oxygen Delivery Room Air 03/18/25 17:04 Temperature 36.1 C L 03/18/25 17:04 Pulse Rate 92 03/18/25 17:04 Respiratory Rate 22 H 03/18/25 17:04 Blood Pressure 182/101 H 03/18/25 17:04 Pulse Oximetry 97 03/18/25 17:04 Oxygen Delivery Room Air 03/18/25 17:04 Reviewed MDM - Extremity Injury (Lower) MDM Narrative Medical decision making narrative: x-ray of left foot negative for fracture. Discussed results with patient. Recommend ibuprofen, ice, elevation, rest. Will follow up primary care physician if pain is not improving. Differential Diagnosis Differential diagnosis: Likely fracture of toe and other ( Left foot fracture, foot sprain, foot contusion) Imaging Data My impression: agree with radiologist Radiologist's impression: XR foot LT min 3V Ordering provider: Janice Serrano NP History: . pain to 3rd-5th toes AND METATARSALS, HYPEREXTENSION INJURY . Comparison: None. FINDINGS: BONES: No acute fracture or dislocation. JOINT SPACES: Narrowing of the proximal and distal interphalangeal joints. 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 No tarsal coalition. SOFT TISSUES: Normal. Calcaneal spur. IMPRESSION: No acute osseous abnormality left foot. Discharge Plan Discharge Clinical Impression: Elevated blood pressure reading Contusion of foot, left Qualifiers: Encounter type: initial encounter Qualified Code(s): S90.32XA - Contusion of left foot, initial encounter Patient Disposition: Home Condition: Stable Instructions: Contusion in Adults (ED) Additional Instructions: the x-ray of your left foot was negative for fracture. Take ibuprofen or Tylenol every 6-8 hours as needed for pain. Elevate when at rest. Apply ice as needed for pain. Your blood pressure was elevated today. Follow-up with your primary care physician at next available appointment. Patient Language: Djiboutian Prescriptions: No Action No Home Medications Follow-up/Referrals: PHYSICIAN,ORNAMENT MAKER HAND [Primary Care Provider] - Stand Alone Forms: Work/School Release IP Time of Disposition: 18:09
--- OUTSIDE RECORDS SUMMARY | 2025-03-18 18:16 | XMS_ITS | Clinical Summary ---
Author Organization [facility] Address [address] [place] [address] Phone Care Team Providers Care Maintenance Man Name Role Phone Provider, None Primary Care Provider Unavailabl e Allergies No known active allergies Medications amLODIPine (NORVASC) 5 MG TabletIndicatio ns:Hypertension Take 1 Tablet by mouth daily. Indications: High Blood Pressure 30 Tablet 12/16/2024 Active Encounters Date Type Department Care Team Description 12/15/2024 5:55 PM CDT - 12/16/2024 1:25 AM CDT Emergency [facility] Emergency [address] [place] [address] Romaine Benson MD Discharge Disposition: Discharged to home or Selfcare from Last 3 Months Social History Tobacco [...] 5:52 PM CDT Height 193 cm (6' 4) 12/15/2024 5:52 PM CDT Body Mass Index 59.64 12/15/2024 5:52 PM CDT Plan of Treatment Health Maintenance Due Date Last Done Comments Hepatitis C Virus (HCV) Screening 1979 TdaP Immunization 1979 Hepatitis B Immunization (1 of 3 - 19+ 3-dose series) 1998 SARS-COV-2 Immunization ( season) 2024 02/22/2021 Colonoscopy 2024 Colorectal Cancer Screening 2024 Influenza Immunization (Seas on Ended) 2025 Respiratory Syncytial Virus (RSV) Immunization (Adult) (1 - 1-dose 75+ series) 2054 Human Papillomavirus (HPV) Immunization Aged Out No longer eligible b ased on patient's age to complete this topic Meningococcal Immunization (ACWY) Aged Out No longer eligible based on patient's age to complete this topic Pneumococcal Immunization Combined Aged Out No longer eligible based on patient's age to complete this topic Rotavirus Immunization Aged Out No lo nger eligible based on patient's age to complete this topic Insurance Care Teams Maintenance Man Relationship Specialty Start Date End Date Provider, Chris VELAZQUEZ PCP - General 12/15/24
== END 2025-03-18 18:10 | disposition home or self-care (01) ==
PROVIDERS: Emergency Provider Nurse Practitioner Family
DX: I10 Essential (primary) hypertension (principal); S90.32XA Contusion of left foot, initial encounter; W10.9XXA Fall (on) (from) unspecified stairs and steps, initial encounter; F17.210 Nicotine dependence, cigarettes, uncomplicated
CPT/HCPCS: 73630; 99213; G0463

== ENCOUNTER 2025-04-23 12:21 | Emergency (ER) | payer SELFPAY ==
--- OUTSIDE RECORDS SUMMARY | 2025-04-23 12:23 | XMS_ITS | Clinical Summary ---
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 Indications: High Blood Pressure 30 Tablet 12/16/2024 Active Social History Tobacco Use Types Packs/Day Years [...] Virus (HCV) Screening 1979 TdaP Immunization 1979 Human Papillomavirus (HPV) Immunization (1 - Male 3-dose series) 1994 Hepatitis B Immunization (1 of 3 - 19+ 3-dose series) 1998 SARS-COV-2 Immunization (2023- season) 2024 02/22/2021 Cologuard 2024 Colonoscopy 2024 Colorectal Cancer Screening 2024 Immunochemical Fecal Occult Blood 2024 Influenza Immunization (#1) 2025 Respiratory Syncytial Virus (RSV) Immunization (Adult) [...] to complete this topic Insurance Care Teams Towel Rolling Machine Operator Relationship Specialty Start Date End Date Provider, None [place] PCP - General 12/15/24
[2025-04-23 12:34] VITALS: BP 166/106; PULSE 92; RESP 22; TEMP 36.1; O2SAT 96
--- NOTE | 2025-04-23 13:06 | ED_ITS ---
HPI - General Adult General Chief complaint: Headache Stated complaint: Heat caused nausea Time Seen by Provider: 04/23/25 12:42 Source: patient and RN notes reviewed Mode of arrival: ambulatory Limitations: no limitations History of Present Illness HPI narrative: Patient presents today requesting a work excuse. Yesterday he vomited after working in the heat and also exists variance some dizziness, cramping, and mild confusion. After this episode he said in the air conditioning at work before driving home. Today he has a mild headache some dry mouth and fatigue. He currently denies any dizziness, sweating, cramping, vomiting, nausea, or abdominal pain. He is requesting a note to excuse him from work yesterday and today. He is orally hydrating with water and electrolyte fluids. Related Data Home Medications ?Medication ?Instructions ?Recorded ?Confirmed ?Last Taken ?Type albuterol sulfate 90 mcg/actuation inhalation 04/23/25 Unknown History aerosol inhaler Allergies Allergy/AdvReac Type Severity Reaction Status Date / Time No Known Allergies Allergy Unknown Verified 04/23/25 12:37 [facility] Past Medical History Medical History Depression Open ankle fracture ORIF left ankle with pinning History of IBS Hypertension Surgical History Surgical History No pertinent past surgical history Family History Family History Father Heart disease Hypertension Alcoholism Mother Alcoholism Depression Grandparent Hypertension Depression Social History Social History Smoking packs per day: 1 Smoking cigarettes per day: 20.0 Years smoked: 20 Smoking pack-years: 20.00 Smoking status: Current every day smoker Tobacco type: cigarettes Alcohol intake: current Alcohol use details: social Substance use: current Substance use type: marijuana Living arrangements: with family Gender identity (if verbalized by the patient): Male Comments Reviewed Exam Narrative: GENERAL: Well-appearing, obese, and in no acute distress. HEAD: Normocephalic, atraumatic. EYES: EOMI. No redness or drainage. Conjunctivae normal. ENT: Mucous membranes pink and moist. NECK: Normal AROM. Supple. No lymphadenopathy. CHEST: No respiratory distress. Clear to auscultation. HEART: Regular rate and rhythm. No murmur appreciated. EXTREMITIES: Normal range of motion. No edema. SKIN: Warm, dry, no rash. Capillary refill normal. Normal skin turgor. NEURO: No focal deficits. Alert and oriented x3. Gait steady. PSYCH: Normal affect. No signs of depression or anxiety. Course Course Level of Care: Express Care Visit Vital Signs Vital signs: Vital Signs Temperature 97 F L 04/23/25 12:34 Pulse Rate 92 04/23/25 12:34 Respiratory Rate 22 H 04/23/25 12:34 Blood Pressure 166/106 H 04/23/25 12:34 Pulse Oximetry 96 04/23/25 12:34 Oxygen Delivery Room Air 04/23/25 12:34 Temperature 97 F L 04/23/25 12:34 Pulse Rate 92 04/23/25 12:34 Respiratory Rate 22 H 04/23/25 12:34 Blood Pressure 166/106 H 04/23/25 12:34 Pulse Oximetry 96 04/23/25 12:34 Oxygen Delivery Room Air 04/23/25 12:34 Reviewed Medical Decision Making MDM Narrative Medical decision making narrative: 44-year-old male patient presents with heat exhaustion symptoms yesterday causing him to leave work. He would like a note to excuse him from work yesterday and today. Today he is experiencing some headache, fatigue, and mild dry mouth. Denies any other symptoms. Today he is orally hydrating. Patient's history of hypertension but has been off of hypertension meds for 2 months and was just prescribed some HCTZ and losartan this morning and will pick them up from the pharmacy after leaving. BP upon arrival was 166/106. Work note provided. Anticipatory guidance and ED precautions given. Differential Diagnosis Differential Diagnosis: Heat exhaustion, heat stroke, viral syndrome, electrolyte imbalance, dehydration Vital Signs Vital Signs: Vital Signs Temperature 97 F L 04/23/25 12:34 Pulse Rate 92 04/23/25 12:34 Respiratory Rate 22 H 04/23/25 12:34 Blood Pressure 166/106 H 04/23/25 12:34 Pulse Oximetry 96 04/23/25 12:34 Oxygen Delivery Room Air 04/23/25 12:34 Temperature 97 F L 04/23/25 12:34 Pulse Rate 92 04/23/25 12:34 Respiratory Rate 22 H 04/23/25 12:34 Blood Pressure 166/106 H 04/23/25 12:34 Pulse Oximetry 96 04/23/25 12:34 Oxygen Delivery Room Air 04/23/25 12:34 Critical Care Time Critical Care Time Critical Care Time: No Discharge Plan Discharge Clinical Impression: Heat exhaustion Qualifiers: Encounter type: initial encounter Qualified Code(s): T67.5XXA - Heat exhaustion, unspecified, initial encounter Patient Disposition: Home Condition: Stable Instructions: Heat Exhaustion (ED) Additional Instructions: Please continue to orally hydrate at home with water and fluids containing electrolytes. Rest in the air conditioning. As discussed, if symptoms worsen to include dizziness, cramping, nausea or vomiting, abdominal pain, please go to the ER immediately for further evaluation. Your blood pressure was elevated above 120/80 today at Urgent Care. This puts you above the threshold for follow up. Please schedule a followup visit with your personal physician as soon as possible, for further evaluation and treatment. Even blood pressure exceeding 120/80 may indicate pre-hypertension. Patient Language: [place] Korean Prescriptions: No Action albuterol sulfate 90 mcg/actuation HFA aerosol inhaler INHALATION lisinopril 20 mg tablet 20 mg PO DAILY Qty: 90 0RF Patient Comments: new script hasn't taken yet but to start taking today when he picks up from pharmacy. hydrochlorothiazide 25 mg tablet 25 mg PO DAILY Qty: 90 0RF Patient Comments: hasn't picked up script yet. to get later today. Follow-up/Referrals: Angélica Christian DO [Primary Care Provider] - Stand Alone Forms: Work/School Release IP Time of Disposition: 12:56
== END 2025-04-23 13:01 | disposition home or self-care (01) ==
PROVIDERS: Emergency Provider Nurse Practitioner; PCP Family Medicine
DX: T67.5XXA Heat exhaustion, unspecified, initial encounter (principal); I10 Essential (primary) hypertension; F17.210 Nicotine dependence, cigarettes, uncomplicated
CPT/HCPCS: 99213; G0463

== ENCOUNTER 2025-08-15 15:18 | Emergency (ER) | payer SELFPAY ==
--- NOTE | 2025-08-15 15:23 | ED.URI ---
HPI - URI/Sore Throat General Chief Complaint: Upper Respiratory Infection Stated Complaint: Fever/Body Aches/Headache Time Seen by Provider: 08/15/25 15:24 Source: patient Mode of arrival: ambulatory Limitations: no limitations History of Present Illness HPI Narrative: Taras is a 44-year-old male patient presenting to the clinic today with complaints of fever, body aches, runny nose, post nasal drainage, and headache X2 days. He reports yesterday he felt feverish. Did not checked his temperature. Has not taken any medications for his symptoms. Denies any current pain at this time. 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 Had sick contact at work. Related Data Home Medications ?Medication ?Instructions ?Recorded ?Confirmed ?Last Taken ?Type furosemide 40 mg tablet 40 mg PO DAILY 06/02/25 08/04/25 Unknown History lisinopril 20 mg tablet 10 mg PO DAILY 06/02/25 08/04/25 Unknown History Allergies Allergy/AdvReac Type Severity Reaction Status Date / Time No Known Allergies Allergy Unknown Verified 08/15/25 15:27 Review of Systems Review of Systems: Pertinent positives per HPI. Patient denies any visual changes, dizziness, chest pain, palpitations, nausea, vomiting, diarrhea, constipation, abdominal pain, or any urinary issues. [facility] Past Medical History Medical History Depression Open ankle fracture ORIF left ankle with pinning History of IBS Hypertension Surgical History Surgical History No pertinent past surgical history Family History Family History Father Heart disease Hypertension Alcoholism Mother Alcoholism Depression Grandparent Hypertension Depression Social History Social History Smoking packs per day: 1 Smoking cigarettes per day: 20.0 Years smoked: 20 Smoking pack-years: 20.00 Tobacco type: cigarettes Alcohol intake: current Alcohol use details: social Substance use: current Substance use type: marijuana Living arrangements: with family Gender identity (if verbalized by the patient): Male Comments At the time of my signature, I reviewed and agree with the nursing past medical, surgical, social, and family history. There is no relevant family history pertinent to the patient complaint. Exam Narrative: General: Well-developed, morbidly obese, in no apparent distress Head: Normocephalic, atraumatic Eyes: Pupils equally round and reactive to light bilaterally, EOM intact, sclera and conjunctive clear, no discharge, lids normal Ears: TMs intact and clear, ear canals clear, no drainage, grossly hearing normal. Nose: Nares patent, clear nasal discharge, no inflammation, no sinus tenderness. Mouth: Oral pharynx without lesions or masses, good dentition, MMM. Postnasal drip Neck: Supple, trachea midline, no enlargement of anterior or posterior cervical nodes, no thyroid masses or goiter palpable. Cardio: Regular rate and rhythm, s1 and s2 normal, no murmur appreciated. Resp: Clear to auscultation bilaterally, no rhonchi, rales, wheezing or rubs Course Course Emergency Course: Portions of this record may have been created with voice recognition software. Level of Care: Express Care Visit Vital Signs Vital signs: Vital Signs Temperature 36.5 C 08/15/25 15:26 Pulse Rate 94 08/15/25 15:26 Respiratory Rate 20 08/15/25 15:26 Blood Pressure 182/87 H 08/15/25 15:26 Pulse Oximetry 98 08/15/25 15:26 Oxygen Delivery Room Air 08/15/25 15:26 Temperature 36.5 C 08/15/25 15:26 Pulse Rate 94 08/15/25 15:26 Respiratory Rate 20 08/15/25 15:26 Blood Pressure 182/87 H 08/15/25 15:26 Pulse Oximetry 98 08/15/25 15:26 Oxygen Delivery Room Air 08/15/25 15:26 Vital signs reviewed MDM - URI/Sore Throat MDM Narrative Medical decision making narrative: At the time of visit patient is resting comfortably on the exam table. Patient appears to be nontoxic. Complaints of fever, body aches, runny nose, post nasal drainage, and headache X2 days. He reports yesterday he felt feverish. Did not checked his temperature. Has not taken any medications for his symptoms. Denies any current pain at this time. 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 Had sick contact at work. Labs: COVID and influenza testing performed and was negative in the clinic today. Plan: I suspect patient has URI. Work note given. Supportive measures were discussed with the patient and they voiced understanding discharge instructions and agrees to treatment plan. Return precautions reviewed Differential Diagnosis Differential diagnosis: Likely upper respiratory infection, otitis media, sinusitis, viral infection, bronchitis, influenza, pharyngitis and other ( COVID) Discharge Plan Discharge Clinical Impression: Upper respiratory infection Qualifiers: URI type: unspecified URI Qualified Code(s): J06.9 - Acute upper respiratory infection, unspecified Patient Disposition: Home Condition: Stable Instructions: Antibiotic Form, Cold Symptoms (ED) Additional Instructions: COVID and influenza testing was negative in the clinic today. May take Coricidin HBP for cold /flu symptoms. Increase fluids and stay well hydrated May take Tylenol or motrin as directed on bottle for pain/fever May use Flonase 1 spray in each nare daily May take OTC antihistamines such as Zyrtec or Claritin daily as directed on bottle May apply Vicks vapor rub to chest to open sinuses Sinus rinses for congestion Cepacol spray, cough drops, throat lozenges, warm tea with honey/lemon, gargle salt water to soothe throat BRAT diet for diarrhea Clear liquids x 24 hours then advance as tolerated for nausea/vomiting Go to the ED if you develop a worsening in your condition- high fever not controlled by Tylenol or Motrin, dehydration, weakness, lethargy, shortness of breath, or chest pain. Follow up with your PCP in 3-5 days if symptoms persist. Patient Language: Georgian Prescriptions: No Action lisinopril 20 mg tablet 10 mg PO DAILY furosemide 40 mg tablet 40 mg PO DAILY Follow-up/Referrals: Angélica Christian DO [Primary Care Provider, Family Practice] Stand Alone Forms: Work/School Release IP Time of Disposition: 15:37 Quality NIHSS Nursing Documentation ED NIHSS nursing documentation: reviewed/agree
[2025-08-15 15:26] VITALS: BP 182/87; PULSE 94; RESP 20; TEMP 36.5; O2SAT 98
[2025-08-15 15:46] LABS: EDCOVIDSCREEN Negative (Negative); EDINFLUASCREEN Negative (Negative); EDINFLUBSCREEN Negative (Negative)
== END 2025-08-15 15:46 | disposition home or self-care (01) ==
PROVIDERS: Emergency Provider Nurse Practitioner Family; PCP Family Medicine
DX: J06.9 Acute upper respiratory infection, unspecified (principal); Z20.822 Contact with and (suspected) exposure to COVID-19; F17.210 Nicotine dependence, cigarettes, uncomplicated; F12.90 Cannabis use, unspecified, uncomplicated; I10 Essential (primary) hypertension
CPT/HCPCS: 87426; 87804; 99212; G0463

== ENCOUNTER 2025-09-09 14:25 | Emergency (ER) | payer SELFPAY ==
[2025-09-09 14:35] VITALS: BP 201/93; PULSE 92; RESP 18; TEMP 37.4; O2SAT 95
--- NOTE | 2025-09-09 14:38 | ED_ITS ---
HPI - URI/Sore Throat General Chief Complaint: Upper Respiratory Infection Stated Complaint: throat Time Seen by Provider: 09/09/25 14:40 Source: patient, RN notes reviewed and old records reviewed Mode of arrival: ambulatory Limitations: no limitations History of Present Illness HPI Narrative: 45 year old male who presents to [facility] care with complaints of sore throat for 2 days., cough, nasal congestion and drainage and sinus pressure for 4 days.Patien.t reports that his cough is productive at times of white mucous, , denies any shortness of breath or wheezing. Patient is a pack a day smoker for many years. He states that he has not taken any OTC medications for his symptoms. Reports no known fevers or body aches, denies any chills or sweats MD elicited complaint: cough and sore throat Onset (ago): day(s) (sinus and nasal drainage with cough 4 days , sore throat for 2 days.) Consistency: constant Pain scale (0-10): 3 Description of mucous: other (white thick) Able to tolerate fluids by mouth: Yes Treatments prior to arrival: none Related Data Home Medications ?Medication ?Instructions ?Recorded ?Confirmed ?Last Taken ?Type furosemide 40 mg tablet 40 mg PO DAILY 06/02/2507/09 Unknown History Allergies Allergy/AdvReac Type Severity Reaction Status Date / Time No Known Allergies Allergy Unknown Verified 09/09/25 14:39 Review of Systems Review of Systems: CONSTITUTIONAL: reports malaise,no chills, sweats, or fever. EYES: Denies visual changes, redness, or discharge. ENT: Reports rhinorrhea, congestion, sinus pain,no otalgia and +sore throat. CARDIOVASCULAR: Denies chest pain, palpitations, or edema. RESPIRATORY: Reports productive cough.? Denies dyspnea. GASTROINTESTINAL: Denies abdominal pain, nausea, vomiting, diarrhea SKIN: Denies rash or itching. MUSCULOSKELETAL: Denies myalgia. NEUROLOGIC: Denies headache. All systems reviewed & are unremarkable except as noted in HPI and below PMFSH Past Medical History Medical History (Updated 09/10/25 @ 15:03 by Vicki Linda APRN) Depression Open ankle fracture ORIF left ankle with pinning History of IBS Hypertension Surgical History Surgical History (Updated 09/10/25 @ 14:54 by Vicki Linda APRN) History of arthroplasty of left ankle Family History Family History Father Heart disease Hypertension Alcoholism Mother Alcoholism Depression Grandparent Hypertension Depression Social History Social History Smoking packs per day: 1 Smoking cigarettes per day: 20.0 Years smoked: 20 Smoking pack-years: 20.00 Smoking status: Current every day smoker Tobacco type: cigarettes Alcohol intake: current Alcohol use details: social Substance use: current Substance use type: marijuana Living arrangements: with family Gender identity (if verbalized by the patient): Male Comments At time of signature, agree with nursing past medical, surgical, social and family history. There is no relevant family history pertinent to the presenting complaint Exam Narrative: GENERAL: Well-appearing, well-nourished,morbidly obese, and in no acute distress. HEAD: Normocephalic EYES: PERRLA, conjunctivae clear ENT: Nares clear, turbinates edematous and erythematous, clear discharge, sinus pressure, Mucous membranes moist. TM pearly carroll with dull light reflex bilaterally; no tragal tenderness. Oropharynx erythematous without lesions. Tonsils not enlarged and without exudate, no drooling, no hoarseness, no makayla mus, uvula midline.post nasal drainage NECK: Supple. No lymphadenopathy CHEST: Clear decreased to auscultation, breath sounds equal. No wheezing, rhonchi, rales, or stridor. No respiratory distress, speaks in full sentences. HEART: Regular rate and rhythm. No murmur heard. productive cough noted SAO2 95% on room air SKIN: Warm, dry, no rash. NEURO: Alert and oriented x3. PSYCH: Normal mood and affect Course Course Level of Care: Express Care Visit Vital Signs Vital signs: Vital Signs Temperature 37.4 C 09/09/25 14:35 Pulse Rate 92 09/09/25 14:35 Respiratory Rate 18 09/09/25 14:35 Blood Pressure 201/93 H 09/09/25 14:35 Pulse Oximetry 95 09/09/25 14:35 Oxygen Delivery Room Air 09/09/25 14:35 Temperature 37.4 C 09/09/25 14:35 Pulse Rate 92 12/03/25 14:35 Respiratory Rate 18 09/09/25 14:35 Blood Pressure 201/93 H 09/09/25 14:35 Pulse Oximetry 95 09/09/25 14:35 Oxygen Delivery Room Air 09/09/25 14:35 reviewed [facility] Narrative Medical decision making narrative: 45 year old male presents to express care with sinus congestion sore throat and cough all POC testing negative, with strep culture sent. Patient denies any shortness of breath with no tachypnea noted, denies any fevers chills or body aches. supportive care with OTC medications and steroids for frequent cough. encouraged patient to follow up PCP in regards to elevation of blood pressure and compliance with medication regime. Anticipatory guidance and reasons to seek care in ED reviewed with patient with understanding voiced. Differential diagnostic considerations for upper respiratory infection include upper respiratory infection, croup, otitis media, sinusitis, viral infection, bronchitis, influenza, pharyngitis, strep, uvulitis.? Differential Diagnosis Differential Diagnosis: URI,viral infection. pharyngitis, strep pharyngitis. Lab Data [facility] Lab Attestation statement: I personally reviewed the patient's lab results. Labs: Lab Results 09/09/25 09/09/25 Range/Units 14:46 14:54 POC Influenza A Ag Negative (Negative) POC Influenza B Ag Negative (Negative) POC SARS CoV-2 Ag Negative (Negative) POC Grp A Strep Screen Negative (Negative) reviewed Critical Care Time Critical Care Time Critical Care Time: No Discharge Plan Discharge Clinical Impression: Pharyngitis Qualifiers: Pharyngitis/tonsillitis etiology: unspecified etiology Qualified Code(s): J02.9 - Acute pharyngitis, unspecified Cough Qualifiers: Cough type: acute Qualified Code(s): R05.1 - Acute cough Patient Disposition: Home Condition: Stable Instructions: Antibiotic Form Additional Instructions: Increase fluids especially juices and water [id number] cough and cold medicine of your choice for your symptoms Zyrtec Claritin or Oly daily Steroids as directed--take with food heat to the face 20-30 minutes 4-6 times a day for pain Salt water gargles, throat lozenges or throat sprays as desired Your strep test today was negative. A throat culture will be sent to the laboratory for further testing. IF the test is positive, you will receive a phone call within 48 hours and an appropriate antibiotic will be initiated at that time. If your symptoms persist, change or worsen significantly before you can contact your personal physician then please, without delay, go to the emergency department for further evaluation. Follow-up with PCP in 7-10 days or sooner if needed Follow up with PCP soon in regards to your blood pressure which is elevated above threshold for referral. Blood pressure above 120/80 may indicate pre- hypertension. Tylenol or ibuprofen for any fever or pain Patient Language: Bengali Prescriptions: New prednisone 20 mg tablet 40 mg PO DAILY 5 Days Qty: 10 0RF Rx Instructions: take in the morning with food No Action furosemide 40 mg tablet 40 mg PO DAILY Follow-up/Referrals: Angélica Christian DO [Primary Care Provider, Family Practice] Stand Alone Forms: Work/School Release IP Time of Disposition: 15:01 Quality Carrillo Coma Scale Eyes: Open Verbal: Oriented and Alert Motor: Follows Commands Carrillo Coma Total Score: 15
[2025-09-09 14:49] LABS: EDSTREPNEGPOS1 Negative (Negative)
[2025-09-09 14:55] LABS: EDCOVIDSCREEN Negative (Negative); EDINFLUASCREEN Negative (Negative); EDINFLUBSCREEN Negative (Negative)
--- OUTSIDE RECORDS SUMMARY | 2025-09-09 15:45 | XMS_ITS | Clinical Summary ---
Author Organization [facility] Address [address] [place] [address] Phone Care Team Providers Care Protection Specialist Name Role Phone Angélica Christian DO Primary Care Provider [phone] Allergies No known active allergies Medications lisinopril (PRINIVIL, ZESTRIL) 10 MG Tablet Take 1 Tablet by mouth daily. 90 Tablet 5 Active furosemide (LASIX) 40 MG Tablet Take 1 Tablet by mouth daily. 90 Tablet 5 Active ondansetron (ZOFRAN-ODT) 4 MG TABLET DISPERSIBLE Take 1 Tablet by mouth every 6 hours as needed for Nausea - 1st line. 10 Tablet 5 Active polyethylene glycol (GLYCOLAX, MIRALAX) 17 g PackIndications :Constipation Take 1 Packet by mouth 2 times daily as needed for Constipation - 1st line. Dissolve in 4-8 oz of liquid. Indications: Constipation 5 Active Active Problems Problem Noted Date Diagnosed Date Cellulitis of abdominal wall 05/25/2025 Morbid obesity 05/25/2025 Hypertension 05/25/2025 Dyslipidemia 05/25/2025 Morbid obesity Social History Tobacco Use Types Packs/Day Years Used Date Smoking Tobacco: Never Assessed Social Connection and Isolation Panel Answer Date Recorded In a typical week, how many times do you talk on the phone with family, friends, or neighbors? Patient declined 05/25/2025 How often do you get togethe r with friends or relatives? Patient declined 05/25/2025 How often do you attend alevism or zoroastrianism serv ices? Patient declined 05/25/2025 Do you belong to any clubs o r organizations such as alevism groups, unions, fraternal or athletic groups, or school groups? Patient declined 05/25/2025 How often do you attend meet ings of the clubs or organizations you belong to? Patient declined 05/25/2025 Are you , , di vorced, , never , or living with a partner? Patient declined 05/25/2025 AUDIT-C Answer Date Recorded Q1: How often do you have a drink containing alc ohol? Patient declined 05/25/2025 Q2: How many drinks containi ng alcohol do you have on a typical day when you are drinking? Patient declined 05/25/2025 Q3: How often do you have si x or more drinks on one occasion? Patient declined 05/25/2025 Overall Financial Resource Strain (CARDIA) Answe r Date Recorded How hard is it for you to pa y for the very basics like food, housing, medical care, and heating? Patient declined 05/25/2025 [facility] Occupat ional [facility] - Occupational Stress Questionnaire Answer Date Recorded Do you feel stress - tense, restless, nervous, or anxious, or unable to sleep at night because your mind is troubled all the time - these days? Patient declined 05/25/2025 Exercise Vital Sign Answer Date Recorde d On average, how many days pe r week do you engage in moderate to strenuous exercise (like a brisk walk)? Patient declined On average, how many minutes do you engage in exercise at this level? Patient declined 05/25/2025 Hunger Vital Sign Answer Date Recorded Within the past 12 months, y ou worried that your food would run out before you got the money to buy more. Patient declined Within the past 12 months, t he food you bought just didn't last and you didn't have money to get more. Patient declined PRAPARE - Transportation Answer Date Re corded In the past 12 months, has l ack of transportation kept you from medical appointments or from getting medications? Patient declined 05/25/2025 In the past 12 months, has l ack of transportation kept you from meetings, work, or from getting things needed for daily living? Patient declined 05/25/2025 Housing Stability Vital Sign Answer Sadi e Recorded In the last 12 months, was t here a time when you were not able to pay the mortgage or rent on time? Patient declined 05/25/20 25 In the past 12 months, how m any times have you moved where you were living? 0 05/25/2025 At any time in the past 12 m onths, were you homeless or living in a senior living (including now)? Patient declined 05/25/2025 [facility] Utilities Answer Date Recorded In the past 12 months has th e [employer], gas, oil, or water [employer] threatened to shut off services in your home? Patient declined 05/25/2025 Sex and Gender Information Value Date Recorded Sex Assigned at Not on file Legal Sex Male 5:48 PM CDT Gender Identity Not on file Sexual Orientation Not on file Last Filed Vital Signs Vital Sign Reading Time Taken Comments Blood Pressure 149/85 05/27/2025 11:48 AM CDT Pulse 83 05/27/2025 11:48 AM CDT Temperature 36.4 C (97.6 F) 05/27/2025 11:48 AM CDT Respiratory Rate 18 05/27/2025 11:48 AM CDT Oxygen Saturation 96% 05/27/2025 11:48 AM CDT Inhaled Oxygen Concentration - - Weight 242.7 kg (535 lb) 05/25/2025 9:49 AM CDT Height 193 cm (6' 4) 05/25/2025 9:49 AM CDT Body Mass Index 65.12 05/25/2025 9:49 AM CDT Plan of Treatment Health Maintenance Due Date Last Done Comments Hepatitis C Virus (HCV) Screening 1979 TdaP Immunization 1979 Hepatitis B Immunization (1 of 3 - 19+ 3-dose series) 1998 Human Papillomavirus (HPV) Immunization (1 - 3-dose SCDM series) 2006 Cologuard 2024 Colonoscopy 2024 Colorectal Cancer Screening 2024 Immunochemical Fecal Occult Blood 2024 Influenza Immunization (#1) 2025 SARS-COV-2 Immunization ( season) 2025 02/22/2021 Respiratory Syncytial Virus (RSV) Immunization (Adult) (1 - 1-dose 75+ series) 2054 Meningococcal Immunization (ACWY) Aged Out No longer eligible based on patient's age to complete this topic Pneumococcal Immunization Combined Aged Out No longer eligible based on patient's age to complete this topic Rotavirus Immunization Aged Out No lo nger eligible based on patient's age to complete this topic Advance Directives * Full Code (Latest Code Status on File) Date Activated Date Inactivated Comments 05/25/2025 4:17 PM CPR-Full Treat ment: FULL ARREST: Attempt Resuscitation/CPR wit intubation and mechanical ventilation. PRE-ARREST: Use entire range of life support measures to stabilize the patient. * Full Code Date Activated Date Inactivated Comments 05/25/2025 4:17 PM 05/25/2025 4:17 PM CPR-Full Heber atment: FULL ARREST: Attempt Resuscitation/CPR wit intubation and mechanical ventilation. PRE-ARREST: Use entire range of life support measures to stabilize the patient. Care Teams Protection Specialist Relationship Specialty Start Date End Date Angélica Christian DO [address] [place] [address] PCP - General Family Medicine 05/21/25
== END 2025-09-09 15:11 | disposition home or self-care (01) ==
PROVIDERS: Emergency Provider Registered Nurse; PCP Family Medicine
DX: J02.9 Acute pharyngitis, unspecified (principal); R05.1 Acute cough; Z20.822 Contact with and (suspected) exposure to COVID-19; F17.210 Nicotine dependence, cigarettes, uncomplicated; F12.90 Cannabis use, unspecified, uncomplicated; I10 Essential (primary) hypertension
CPT/HCPCS: 87081; 87426; 87804; 87880; 99213; G0463

== ENCOUNTER 2025-09-12 13:54 | Emergency (ER) | payer SELFPAY ==
--- OUTSIDE RECORDS SUMMARY | 2025-09-12 13:58 | XMS_ITS | Clinical Summary ---
Author Organization [facility] Address [address] [place] [address] Care Team Providers Care Battery Vent Plug Inserter Name Role Phone No, Pcp FILM TECHNICIAN Primary Care Provider Unavailabl e Social History Tobacco Use Types Packs/Day Years Used Date Smoking Tobacco: Never Assessed Sex and Gender Information Value Date Recorded Sex Assigned at Not on file Legal Sex Male 7:34 PM EDT Gender Identity Not on file Sexual Orientation Not on file Plan of Treatment Not on file Medical Devices Not on file Care Teams Battery Vent Plug Inserter Relationship Specialty Start Date End Date No, Pcp, FILM TECHNICIAN N/A Do not use PCP - General Family Medicine 07/08/20
[2025-09-12 13:59] VITALS: BP 173/88; PULSE 84; RESP 16; TEMP 36.6; O2SAT 97
--- NOTE | 2025-09-12 14:09 | ED.GENADULT ---
HPI - General Adult General Chief complaint: Fever Stated complaint: Fever Time Seen by Provider: 09/12/25 14:09 Source: patient Mode of arrival: ambulatory Limitations: no limitations History of Present Illness HPI narrative: 45-year-old male here for work note. Was seen here 3 days ago for upper respiratory infection. Was given note for only 2 days off. Needs 1 extra day. Patient states symptoms resolved. All systems reviewed and negative except as noted above. Related Data Home Medications ?Medication ?Instructions ?Recorded ?Confirmed ?Last Taken ?Type furosemide 40 mg tablet 40 mg PO DAILY 06/02/25 08/04/25 Unknown History Allergies Allergy/AdvReac Type Severity Reaction Status Date / Time No Known Allergies Allergy Unknown Verified 09/12/25 14:04 [facility] Past Medical History Medical History (Updated 09/12/25 @ 14:08 by Janice Serrano APRN) Depression Open ankle fracture ORIF left ankle with pinning History of IBS Hypertension Surgical History Surgical History (Updated 09/10/25 @ 14:54 by Vicki Linda APRN) History of arthroplasty of left ankle Family History Family History Father Heart disease Hypertension Alcoholism Mother Alcoholism Depression Grandparent Hypertension Depression Social History Social History Smoking packs per day: 1 Smoking cigarettes per day: 20.0 Years smoked: 20 Smoking pack-years: 20.00 Smoking status: Current every day smoker Tobacco type: cigarettes Alcohol intake: current Alcohol use details: social Substance use: current Substance use type: marijuana Living arrangements: with family Gender identity (if verbalized by the patient): Male Comments At time of signature, agree with nursing past medical, surgical, social and family history. There is no relevant family history pertinent to the presenting complaint. Exam Narrative: GENERAL: This is a well-nourished, well-developed patient, in no apparent distress. HEAD: normocephalic, atraumatic. EYES: PERRL. Sclera clear/white. Vision is grossly intact. EARS: External ears normal NOSE: External nose normal NECK: Neck supple, non-tender without lymphadenopathy, masses or thyromegaly. CARDIOVASCULAR: Regular rate RESPIRATORY: regular respiratory rate. No distress SKIN: warm, Dry, intact with no suspicious lesions or rash, good texture and turgor. NEURO: awake, alert, and oriented to person, place and time. There were no obvious focal neurologic abnormalities. EXTREMITIES: No joint tenderness, effusion, or edema noted. Course Course Level of Care: Express Care Visit Vital Signs Vital signs: Vital Signs Temperature 36.6 C 09/12/25 13:59 Pulse Rate 84 09/12/25 13:59 Respiratory Rate 16 09/12/25 13:59 Blood Pressure 173/88 H 09/12/25 13:59 Pulse Oximetry 97 09/12/25 13:59 Oxygen Delivery Room Air 09/12/25 13:59 Temperature 36.6 C 09/12/25 13:59 Pulse Rate 84 09/12/25 13:59 Respiratory Rate 16 09/12/25 13:59 Blood Pressure 173/88 H 09/12/25 13:59 Pulse Oximetry 97 09/12/25 13:59 Oxygen Delivery Room Air 09/12/25 13:59 Reviewed MDM MDM Narrative Medical decision making narrative: patient here for work note. Currently has no active complaints. Differential Diagnosis Differential Diagnosis: N/A Discharge Plan Discharge Clinical Impression: Encounter to obtain excuse from work Patient Disposition: Home Condition: Stable Patient Language: [place] Prescriptions: No Action furosemide 40 mg tablet 40 mg PO DAILY Follow-up/Referrals: Angélica Christian DO [Primary Care Provider, Family Practice] Stand Alone Forms: Work/School Release IP Time of Disposition: 14:08
== END 2025-09-12 14:12 | disposition home or self-care (01) ==
PROVIDERS: Emergency Provider Nurse Practitioner Family; PCP Family Medicine
DX: Z02.79 Encounter for issue of other medical certificate (principal); F17.210 Nicotine dependence, cigarettes, uncomplicated; F12.90 Cannabis use, unspecified, uncomplicated; I10 Essential (primary) hypertension
CPT/HCPCS: 99211; G0463

== ENCOUNTER 2025-09-21 14:16 | Emergency (ER) | payer SELFPAY ==
[2025-09-21 14:24] VITALS: BP 172/90; PULSE 84; RESP 20; TEMP 37.2; O2SAT 96
--- NOTE | 2025-09-21 15:03 | ED_ITS ---
HPI - Nausea/Vomiting/Diarrhea General Chief complaint: Nausea/Vomiting/Diarrhea Stated complaint: nausea/diarrhea Time Seen by Provider: 09/21/25 15:03 Source: patient, RN notes reviewed and old records reviewed Mode of arrival: ambulatory Limitations: no limitations History of Present Illness HPI Narrative: 45 year old male who presents to [facility] with complaints of nausea and vomiting X4 today and several incidence of diarrhea.Patient reports that he thinks he ate a bad sandwich at [employer] yesterday. Patient states that he felt queasy yesterday after eating sandwich.Patient reports no abdominal pain. Patient does have history of IBS. MD elicited complaint: nausea, vomiting and diarrhea Pertinent past history: other (IBS) Onset (ago): day(s) (today) Description of vomiting: food contents and watery Description of diarrhea: watery Associated nausea: Yes Associated abdominal pain: No Treatment prior to arrival: other (none) Related Data Home Medications ?Medication ?Instructions ?Recorded ?Confirmed ?Last Taken ?Type furosemide 40 mg tablet 40 mg PO DAILY 06/02/2507/09 Unknown History lisinopril 10 mg tablet mg 09/21/25 Unknown History Allergies Allergy/AdvReac Type Severity Reaction Status Date / Time No Known Allergies Allergy Unknown Verified 09/21/25 14:37 Review of Systems Review of Systems: CONSTITUTIONAL: Denies fever, chills, or sweats. EYES: Denies visual changes, redness, or discharge. ENT: Denies rhinorrhea, congestion, sore throat, or otalgia. CARDIOVASCULAR: Denies chest pain, palpitations, or edema. RESPIRATORY: Denies cough or dyspnea. GASTROINTESTINAL: Denies abdominal pain,+ for nausea, vomiting, or diarrhea. GENITOURINARY: Denies dysuria or hematuria. SKIN: Denies rash or itching. MUSCULOSKELETAL: Denies back pain, joint pain, or myalgia. NEUROLOGIC: Denies headache, numbness, or weakness. PSYCHIATRIC: Denies anxiety or depression. All systems reviewed & are unremarkable except as noted in HPI and below PMFSH Past Medical History Medical History (Updated 09/22/25 @ 00:00 by Background Daemon) Depression Open ankle fracture ORIF left ankle with pinning History of IBS Hypertension Surgical History Surgical History (Updated 09/10/25 @ 14:54 by Vicki Linda APRN) History of arthroplasty of left ankle Family History Family History Father Heart disease Hypertension Alcoholism Mother Alcoholism Depression Grandparent Hypertension Depression Social History Social History Smoking packs per day: 1 Smoking cigarettes per day: 20.0 Years smoked: 20 Smoking pack-years: 20.00 Smoking status: Current every day smoker Tobacco type: cigarettes Alcohol intake: current Alcohol use details: social Substance use: current Substance use type: marijuana Living arrangements: with family Gender identity (if verbalized by the patient): Male Comments At time of signature, agree with nursing past medical, surgical, social and family history. There is no relevant family history pertinent to the presenting complaint Exam Narrative: GENERAL: Well-appearing, well-nourished, morbidly obese and in no acute distress. HEAD: Normocephalic, atraumatic. EYES: PERRLA and EOMI. ENT: Nares clear, no rhinorrhea or epistaxis. Mucous membranes moist.TM's normal with good light reflex, throat pink with no swelling NECK: Supple.no lymphadenopathy CHEST: Clear decreased to auscultation. No respiratory distress. no acute cough noted SAO2 96% on room air HEART: Regular rate and rhythm. No murmur heard. Normal peripheral pulses. ABDOMEN: Soft, nontender, nondistended, normal active bowel sounds. EXTREMITIES: Normal range of motion.trace pedal edema does take diuretic daily. SKIN: Warm, dry, no rash. NEURO: No focal deficits. Alert and oriented x3. Course Course Level of Care: Express Care Visit Vital Signs Vital signs: Vital Signs Temperature 37.2 C 09/21/25 14:24 Pulse Rate 84 09/21/25 14:24 Respiratory Rate 20 09/21/25 14:24 Blood Pressure 172/90 H 09/21/25 14:24 Pulse Oximetry 96 09/21/25 14:24 Oxygen Delivery Room Air 09/21/25 14:24 Temperature 37.2 C 09/21/25 14:24 Pulse Rate 84 09/21/25 14:24 Respiratory Rate 20 09/21/25 14:24 Blood Pressure 172/90 H 09/21/25 14:24 Pulse Oximetry 96 09/21/25 14:24 Oxygen Delivery Room Air 09/21/25 14:24 reviewed MDM MDM Narrative Medical decision making narrative: Patient presents with nausea vomiting and diarrhea today with no fevers or any abdominal pain. Patient reports no known ill contacts. Patient instructed on clear liquid diet only with use of Zofran for nausea and Imodium for diarrhea and any pain to use Tylenol. Anticipatory guidance and reasons to seek care in ED reviewed with understanding voiced. Differential Diagnosis Differential Diagnosis: Differential diagnostic considerations for nausea/vomiting/diarrhea include gastroenteritis, appendicitis, IBD, intestinal obstruction, clostridium difficile, food poisoning, peritonitis, IBS, dehydration, ischemic bowel, ACS, pancreatitis, drug induced nausea/vomiting. Critical Care Time Critical Care Time Critical Care Time: No Discharge Plan Discharge Clinical Impression: Gastroenteritis Patient Disposition: Home Condition: Stable Instructions: Gastroenteritis (ED) Additional Instructions: Clear liquids for the next 8-10 hours, then advance to a bland diet as tolerated A bland diet can consist of--BRAT diet which is bananas, rice, applesauce, and t oast Avoid fried, greasy, fatty, fried foods Avoid caffeine, nicotine, and alcohol Return to your regular diet in the next 3-4 days Medication as directed for nausea and vomiting Sometimes ibuprofen/Aleve can cause increased stomach upset [id number]-[id number] Imodium if develop diarrhea Follow-up with her PCP if continued problems or uncontrolled pain If your symptoms persist, change or worsen significantly before you can contact your personal physician then please, without delay, go to the emergency department for further evaluation. Follow-up with PCP in 7-10 days or sooner if needed Follow up with PCP soon in regards to your blood pressure which is elevated above threshold for referral. Blood pressure above 120/80 may indicate pre- hypertension. 172/90 Patient Language: Mozambican Prescriptions: New ondansetron 4 mg tablet,disintegrating 4 mg PO Q6H PRN (Reason: nausea and vomiting) Qty: 20 0RF No Action lisinopril 10 mg tablet furosemide 40 mg tablet 40 mg PO DAILY Follow-up/Referrals: Angélica Christian DO [Primary Care Provider, Family Practice] Stand Alone Forms: Work/School Release IP Time of Disposition: 15:13 [place] Coma Scale Eyes: Open Verbal: Oriented and Alert Motor: Follows Commands [place] Coma Total Score: 15
== END 2025-09-21 15:15 | disposition home or self-care (01) ==
PROVIDERS: Emergency Provider Registered Nurse; PCP Family Medicine
DX: K52.9 Noninfective gastroenteritis and colitis, unspecified (principal); F17.210 Nicotine dependence, cigarettes, uncomplicated; I10 Essential (primary) hypertension
CPT/HCPCS: 99213; G0463

== ENCOUNTER 2025-09-24 11:16 | Emergency (ER) | payer SELFPAY ==
[2025-09-24 11:24] VITALS: BP 154/87; PULSE 77; RESP 20; TEMP 36.9; O2SAT 96
[2025-09-24] MEDS: DACRIOSE EYE IRRIGATION 118 ML BOTTLE LEFT EYE (12:05)
[2025-09-24] MEDS: FLUORESCEIN SOD 1 MG/STRIP LEFT EYE (12:05)
[2025-09-24] MEDS: TETRACAINE HCL 0.5% OPHTH SOLN 4 ML BTL LEFT EYE (12:06)
--- OUTSIDE RECORDS SUMMARY | 2025-09-24 12:36 | XMS_ITS | Clinical Summary ---
Author Organization [facility] Address [address] [place] [address] Phone Care Team Providers Care Immigration Manager Name Role Phone Angélica Christian DO Primary Care Provider [phone] Allergies No known active allergies Medications lisinopril [...] declined 05/25/2025 How often do you attend sikhism or buddhism serv ices? Patient declined 05/25/2025 Do you belong to any clubs o r organizations such as sikhism groups, unions, fraternal or athletic groups, or [...] medical care, and heating? Patient declined 05/25/2025 [facility] Occupat ional [facility] - Occupational Stress Questionnaire Answer Date Recorded [...] senior living (including now)? Patient declined 05/25/2025 [facility] Utilities Answer Date Recorded In the past 12 months has th e [employer], gas, oil, or water [employer] threatened to shut off services in your [...] of 3 - 19+ 3-dose series) 1998 Cologuard 2024 Colonoscopy 2024 Colorectal Cancer Screening 2024 Immunochemical Fecal Occult Blood 2024 Influenza Immunization (#1) 2025 SARS-COV-2 Immunization ( - season) 2025 02/22/2021 Respiratory Syncytial Virus (RSV) Immunization (Adult) (1 - 1-dose 75+ series) 2054 Human Papillomavirus (HPV) Immunization (No Doses Required) Completed Meningococcal Immunization (ACWY) Aged Out No longer [...] measures to stabilize the patient. Care Teams Immigration Manager Relationship Specialty Start Date End Date Angélica Christian DO [address] [address] PCP - General Family Medicine 05/21/25
--- NOTE | 2025-09-24 12:37 | ED_ITS ---
HPI - Eye Problem General Chief complaint: Eye Problems Stated complaint: L Eye problem Time Seen by Provider: 09/24/25 12:10 Source: patient and RN notes reviewed Mode of arrival: ambulatory Limitations: no limitations History of Present Illness HPI Narrative: 45-year-old male patient presents Express Care complaining of discomfort, discharge, and photophobia it started yesterday. Patient has any injuries to th e eye. Patient reports purulent drainage and eye redness as well. Patient for some blurry vision but no obvious vision changes. Denies any eye pain, headaches, nausea, vomiting, fever, or other symptoms. 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 Related Data Home Medications ?Medication ?Instructions ?Recorded ?Confirmed ?Last Taken ?Type furosemide 40 mg tablet 40 mg PO DAILY 06/02/2507/09 Unknown History lisinopril 10 mg tablet mg 09/21/25 Unknown History Allergies Allergy/AdvReac Type Severity Reaction Status Date / Time No Known Allergies Allergy Unknown Verified 09/24/25 11:30 Review of Systems Review of Systems: CONSTITUTIONAL: Denies fever, chills, or sweats. EYES: Denies visual changes positive for redness, photophobia, or discharge. ENT: Denies rhinorrhea, congestion, sore throat, or otalgia. CARDIOVASCULAR: Denies chest pain, palpitations, or edema. RESPIRATORY: Denies cough or dyspnea. GASTROINTESTINAL: Denies abdominal pain, nausea, vomiting, or diarrhea. GENITOURINARY: Denies dysuria or hematuria. SKIN: Denies rash or itching. MUSCULOSKELETAL: Denies back pain, joint pain, or myalgia. NEUROLOGIC: Denies headache, numbness, or weakness. PSYCHIATRIC: Denies anxiety or depression. All other systems reviewed are negative, except as documented in HPI. [facility] Past Medical History Medical History Depression Open ankle fracture ORIF left ankle with pinning History of IBS Hypertension Surgical History Surgical History History of arthroplasty of left ankle Family History Family History Father Heart disease Hypertension Alcoholism Mother Alcoholism Depression Grandparent Hypertension Depression Social History Social History Smoking packs per day: 1 Smoking cigarettes per day: 20.0 Years smoked: 20 Smoking pack-years: 20.00 Smoking status: Current every day smoker Tobacco type: cigarettes Alcohol intake: current Alcohol use details: social Substance use: current Substance use type: marijuana Living arrangements: with family Gender identity (if verbalized by the patient): Male Comments At the time of my signature, I reviewed and agree with the nursing past medical, surgical, social, and family history. There is no relevant family history pertinent to the patient complaint. Exam Narrative: GENERAL: This is a well-nourished, well-developed adult, in no apparent distress. They are non ill-appearing, nontoxic appearing. HEAD: normocephalic, atraumatic. EYES: Sclera clear/white. Right Conjunctiva normal. Left conjunctiva injected with exudate present. Vision is grossly intact. Extraocular movements intact. Wood's lamp exam with fluorescein stain of left eye reveals small corneal abrasion. No dendritic lesions or aqueous humor present. No epithelial defect. No foreign body. Eversion of left lower and upper eyelid reveals no retained foreign body. Eyelids normal bilaterally. Pupils PERRLA. EARS: External ears normal, auditory canals clear and without drainage, TMs normal without perforation. Hearing grossly intact. NOSE: External nose normal THROAT: Mucous membranes moist NECK: Neck supple, CARDIOVASCULAR: Regular rate and rhythm RESPIRATORY: Respiratory rate normal, respiratory effort nonlabored, no respiratory distress SKIN: warm, Dry, intact with no suspicious lesions or rash, good texture and turgor. NEURO: awake, alert, and oriented to person, place and time. There were no obvious focal neurologic abnormalities. EXTREMITIES: No joint tenderness, effusion, or edema noted. BACK: Nontender without deformity. Course Course Level of Care: Express Care Visit Vital Signs Vital signs: Vital Signs Temperature 98.5 F 09/24/25 11:24 Pulse Rate 77 09/24/25 11:24 Respiratory Rate 20 09/24/25 11:24 Blood Pressure 154/87 H 09/24/25 11:24 Pulse Oximetry 96 09/24/25 11:24 Oxygen Delivery Room Air 09/24/25 11:24 Temperature 98.5 F 09/24/25 11:24 Pulse Rate 77 09/24/25 11:24 Respiratory Rate 20 09/24/25 11:24 Blood Pressure 154/87 H 09/24/25 11:24 Pulse Oximetry 96 09/24/25 11:24 Oxygen Delivery Room Air 09/24/25 11:24 MDM MDM Narrative Medical decision making narrative: Patient has small corneal abrasion to left eye given the redness and discharge will go ahead and treat with antibiotics. Treat with polymyxin eye drops. Patient has follow-up with an eye doctor. Advised close follow-up. ER pr ecautions discussed with patient specially if symptoms not improving the next 24-48 hours, severe eye pain, vision changes my nausea vomiting, headaches, fevers or any serious concerns. Vision grossly intact. Discussed physical exam findings. Advised supportive measures and signs/symptoms to go to the ER. Pt is appropriate for outpt treatment and f/u. Differential Diagnosis Differential Diagnosis: Corneal abrasion, iritis, conjunctivitis, keratitis, scleritis Critical Care Time Critical Care Time Critical Care Time: No Discharge Plan Discharge Clinical Impression: Corneal abrasion Qualifiers: Encounter type: initial encounter Laterality: left Qualified Code(s): S05.02XA - Injury of conjunctiva and corneal abrasion without foreign body, left eye, initial encounter Patient Disposition: Home Condition: Stable Instructions: Antibiotic Form, Corneal Abrasion (ED) Additional Instructions: Corneal abrasions will heal in 1-2 days. Use antibiotic drops as directed. You can wear sunglasses or stay in low light to avoid light sensitivity. Do not touch or rub your eye. Use over the counter lubricating eye drops as needed for irritation Do not wear contact lenses until issue is resolved You may take Tylenol or ibuprofen for pain Follow-up with PCP or balloon sander if condition is not improving in 2-3days. To ER if he develops severe headaches, nausea vomiting, severe eye pain, vision changes, or any serious concerns. [facility] [phone] [facility] [phone] [facility] [phone] [facility] [phone] Patient Language: Martiniquais Prescriptions: New polymyxin B sulf-trimethoprim 10,000 unit- 1 mg/mL drops 1 drp LEFT EYE Q3H 7 Days Qty: 10 0RF Rx Instructions: while awake; do not exceed 6 doses in 24 hours No Action lisinopril 10 mg tablet furosemide 40 mg tablet 40 mg PO DAILY Follow-up/Referrals: Angélica Christian DO [Primary Care Provider, Family Practice] Stand Alone Forms: Work/School Release IP Time of Disposition: 12:31
== END 2025-09-24 12:41 | disposition home or self-care (01) ==
PROVIDERS: PCP Family Medicine
DX: S05.02XA Injury of conjunctiva and corneal abrasion without foreign body, left eye, initial encounter (principal); X58.XXXA Exposure to other specified factors, initial encounter; I10 Essential (primary) hypertension; Z96.662 Presence of left artificial ankle joint
CPT/HCPCS: 99213; A9270; G0463